=== PATIENT | male | born 1945 | race Two or more races ===

== ENCOUNTER 2019-12-20 21:27 | Inpatient (IN) | payer MEDICARE, MEDICAID ==
[~2019-12-20] VITALS: Ht 175.3 cm; Wt 68.5 kg
[2019-12-20 22:40] VITALS: BP 133/67
[2019-12-21] VITALS: BP 119/61
[2019-12-21] MEDS ORDERED: MAGNESIUM HYDROXIDE 30 ML UDC PO PRN
[2019-12-21] MEDS ORDERED: ONDANSETRON HCL/PF 4 MG/2 ML VIAL IVP PRN
[2019-12-21] MEDS ORDERED: NALOXONE HCL 0.4 MG/ML AMPUL IV PRN
[2019-12-21] MEDS ORDERED: MAG HYDROX/AL HYDROX/SIMETH 30 ML UDC PO PRN
[2019-12-21 03:28] LABS: BASOPHILS % (AUTO) 0.4 % (0.0-2.0); EOSINOPHILS % (AUTO) 0.7 % (0.0-6.0); HEMATOCRIT 31 % (39-51); LYMPHOCYTES # (AUTO) 1.1 /CMM (0.8-4.8); LYMPHOCYTES % (AUTO) 16.5 % (20.0-44.0); MEAN CORPUSCULAR HGB CONC 32 g/dl (31.0-36.0); MEAN CORPUSCULAR VOLUME 88 fL (80-96); MONOCYTES # (AUTO) 0.4 /CMM (0.1-1.30); MONOCYTES % (AUTO) 6.3 % (2.0-12.0); NEUTROPHILS # (AUTO) 5.3 /CMM (1.8-8.9); NEUTROPHILS % (AUTO) 76.1 % (43.0-81.0); PLATELET COUNT (AUTO) 309 /CMM (150-450)
[2019-12-21 03:39] LABS: SERUM AMMONIA 61 umol/L (11-32)
[2019-12-21 03:50] LABS: ALANINE AMINOTRANSFERASE 22 U/L (12-78); ALBUMIN 1.6 g/dL (3.4-5.0); ALKALINE PHOSPHATASE 107 U/L (46-116); ASPARTATE AMINOTRANSFERASE 38 U/L (15-37); B-TYPE NATRIURETIC PEPTIDE 2756 PG/ML (0-125); BILIRUBIN,DIRECT 1.2 mg/dL (0.0-0.2); BILIRUBIN,TOTAL 1.6 mg/dL (0.2-1.0); CALCIUM, SERUM 6.5 mg/dL (8.5-10.1); CARBON DIOXIDE 22 mmol/L (21-32); CHLORIDE 107 mmol/L (98-107); CREATININE 1.5 mg/dL (0.6-1.3); GLUCOSE 65 mg/dL (74-106); PHOSPHORUS 4.4 mg/dL (2.5-4.9); POTASSIUM 3.8 mmol/L (3.5-5.1); SODIUM SERUM 139 mmol/L (136-145); TOTAL PROTEIN, SERUM 5.3 g/dL (6.4-8.2); UREA NITROGEN, BLOOD 46 mg/dL (7-18)
[2019-12-21 03:51] LABS: CHOLESTEROL 63 mg/dL (<200); LDL 12 mg/dL (0-99); THYROID STIMULATING HORMONE 0.804 uIU/mL (0.358-3.74); TRIGLYCERIDES 182 mg/dL (30-150)
[2019-12-21 04:00] VITALS: BP 106/56
[2019-12-21 04:01] LABS: HDL CHOLESTEROL < 10 mg/dL (40-60)
--- NOTE | 2019-12-21 06:37 | NUR ---
HAT BLOCKING MACHINE OPERATOR NOTES AWAKE & RESPONSIVE. NOT IN ANY DISTRESS. NO SOB NOTED. DENIES ANY PAIN OR DISCOMFORT AT THIS TIME. ON TELE SR @ 72 WITH IV-HL PATENT & INTACT. MONITORED ACCORDINGLY. CALL LIGHT WITHIN REACH. BED IN LOWEST POSITION. SR UP X 3 WITH BED ALARM ON FOR SAFETY. WILL ENDORSE TO NEXT SHIFT.
[2019-12-21] MEDS ORDERED: MORP30TA59 PO (06:47)
[2019-12-21] MEDS ORDERED: FINA5TAB4 PO (06:47)
[2019-12-21] MEDS ORDERED: APIX5TAB4 PO (06:47)
[2019-12-21] MEDS ORDERED: DULO30CA2 PO (06:47)
[2019-12-21] MEDS ORDERED: OXYB5TAB29 PO (06:47)
[2019-12-21] MEDS ORDERED: METO100T14 PO (06:47)
[2019-12-21] MEDS ORDERED: LORA-259 PO (06:47)
[2019-12-21] MEDS ORDERED: AMIO200T4 PO (06:47)
[2019-12-21] MEDS ORDERED: ZOLP10TA2 PO (06:47)
[2019-12-21] MEDS ORDERED: TAMS-12 PO (06:47)
[2019-12-21] MEDS ORDERED: DICL100T2 PO (06:47)
--- NOTE | 2019-12-21 07:30 | NUR ---
RN NOTES RECEIVED PATIENT IN BED RESTING COMFORTABLY IN MODERATE HIGH BACK REST. A/O X3. NO SIGNS OF DISTRESS NOTED AT THIS TIME. ON TELE MONITORING WITH CURRENT READING OF SR @ 60'S. IV ACCESS ON RIGHT THUMB #24 AND RIGHT FOOT #24. PATENT & INTACT. SAFETY MEASURES IN PLACE, CALL LIGHT WITHIN REACH. BED IN LOWEST POSITION. SR UP X 3 WITH BED ALARM ON FOR SAFETY. WILL CONTINUE TO MONITOR.
[2019-12-21 08:00] VITALS: BP 114/56
[2019-12-21] MEDS ORDERED: HYDR100T27 PO (08:08)
[2019-12-21] MEDS ORDERED: DICL50TA9 PO (08:08)
[2019-12-21] MEDS ORDERED: APIX5TAB PO (08:08)
[2019-12-21] MEDS ORDERED: METO25TA4 PO (08:08)
[2019-12-21] MEDS ORDERED: hydrALAZINE HCL 50 MG TABLET PO PRN (08:30)
[2019-12-21 08:44] LABS: IRON, SERUM 22 ug/dl (50-175); TOTAL IRON BINDING CAPACITY 81 ug/dl (250-450)
[2019-12-21] MEDS: DULOXETINE HCL 30 MG CAPSULE.DR PO SCH (08:56)
[2019-12-21] MEDS: FINASTERIDE (5 MG) 5 MG TABLET PO SCH (08:56)
[2019-12-21] MEDS: FUROSEMIDE 40 MG/4 ML VIAL IV SCH ×2 (08:57→11:36)
[2019-12-21] MEDS: OXYBUTYNIN CHLORIDE ER 5 MG TAB PO SCH ×2 (08:57→16:45)
[2019-12-21] MEDS: PANTOPRAZOLE 40 MG TABLET.DR PO SCH (08:57)
[2019-12-21] MEDS: AMIODARONE HCL 200 MG TABLET PO SCH ×2 (08:57→16:45)
[2019-12-21] MEDS: POTASSIUM CHLORIDE 20 MEQ TAB.PRT.SR PO SCH ×3 (08:58→11:30)
[2019-12-21] MEDS: APIXABAN 5 MG TABLET PO SCH ×2 (08:59→16:49)
[2019-12-21 09:00] LABS: CHOLESTEROL 63 mg/dL (<200); FERRITIN 270 ng/mL (8-388); LDL 14 mg/dL (0-99); TRIGLYCERIDES 180 mg/dL (30-150)
[2019-12-21] MEDS: METOPROLOL SUCCINATE 25 MG TAB.SR.24H PO SCH (09:00)
[2019-12-21 09:10] LABS: HDL CHOLESTEROL < 10 mg/dL (40-60)
--- NOTE | 2019-12-21 09:10 | NUR ---
RN NOTES PT: 15.4, INR: 1.50, APTT: 44.6, VERIFY WITH DR. TUCKER IF OKAY TO GIVE APIXABAN 5MG, PER DR. TUCKER IT IS OKAY. NO BLEEDING NOTED. WILL CONTINUE TO MONITOR.
[2019-12-21 09:24] LABS: PHOSPHORUS 4.6 mg/dL (2.5-4.9)
[2019-12-21] MEDS ORDERED: FEE PK DOSING 1 MIN EA MC ONE (11:26)
[2019-12-21] MEDS: VANCOMYCIN 1 GM in IV D5W 250 ML IV SCH (13:13)
--- NOTE | 2019-12-21 18:38 | NUR ---
RN NOTES PATIENT IN BED RESTING COMFORTABLY IN MODERATE HIGH BACK REST. A/O X3. NO SIGNS OF DISTRESS NOTED THROUGHOUT THE SHIFT. IV ACCESS ON RIGHT THUMB #24 AND RIGHT FOOT #24. PATENT & INTACT. SAFETY MEASURES IN PLACE, CALL LIGHT WITHIN REACH. BED IN LOWEST POSITION. SR UP X 3 WITH BED ALARM ON FOR SAFETY. WILL ENDORSE TO MAGAZINE FEEDER NURSE FOR ADEN.
[2019-12-21 20:00] VITALS: BP 150/70
--- NOTE | 2019-12-21 20:50 | NUR ---
Met with patient at bedside, he is alert and oriented. States he lives alone in the first floor senior apartment. States he can ambulate with a walker and has a caregiver from [facility] 4hours/day. He requires assistance with adl's and currently on service with [facility] [phone]. Patient does not want SNF placement, states his caregiver Ngoc [phone] will provide ride to go home. Addendum: 12/21/[address] TRIANA RN Amended: Links added.
[2019-12-21] MEDS: TAMSULOSIN 0.4 MG CAP.SR.24H PO SCH (21:17)
--- NOTE | 2019-12-22 06:00 | NUR ---
MS RN NOTES VANCO UNABLE TO GIVE DUE TO PENDING VANCO TROUGH. PT NGHIA. LAB WILL COME BACK TO DRAW BLOOD.
--- NOTE | 2019-12-22 06:08 | NUR ---
MS RN NOTES AWAKE & RESPONSIVE. NOT IN ANY DISTRESS. NO SOB NOTED. DENIES ANY PAIN OR DISCOMFORT AT THIS TIME. WITH IV-HL PATENT & INTACT. AM CARE DONE. MONITORED ACCORDINGLY. CALL LIGHT WITHIN REACH. BED IN LOWEST POSITION. SR UP X 3 WITH BED ALARM ON FOR SAFETY. WILL ENDORSE TO NEXT SHIFT.
--- NOTE | 2019-12-22 07:30 | NUR ---
RN NOTES RECEIVED PATIENT IN BED RESTING COMFORTABLY IN MODERATE HIGH BACK REST. A/O X3. NO SIGNS OF DISTRESS NOTED AT THIS TIME. IV ACCESS ON RIGHT THUMB #24 AND RIGHT FOOT #24. PATENT & INTACT. SAFETY MEASURES IN PLACE, CALL LIGHT WITHIN REACH. BED IN LOWEST POSITION. SR UP X 3 WITH BED ALARM ON FOR SAFETY. WILL CONTINUE TO MONITOR.
[2019-12-22] MEDS ORDERED: AMIODARONE HCL 200 MG TABLET PO SCH (08:00)
[2019-12-22 08:25] LABS: ALANINE AMINOTRANSFERASE 25 U/L (12-78); ALBUMIN 1.5 g/dL (3.4-5.0); ALKALINE PHOSPHATASE 113 U/L (46-116); ASPARTATE AMINOTRANSFERASE 35 U/L (15-37); BILIRUBIN,TOTAL 1.1 mg/dL (0.2-1.0); CARBON DIOXIDE 23 mmol/L (21-32); CHLORIDE 105 mmol/L (98-107); CREATININE 1.1 mg/dL (0.6-1.3); GLUCOSE 84 mg/dL (74-106); MAGNESIUM 1.9 mg/dL (1.8-2.4); PHOSPHORUS 2.4 mg/dL (2.5-4.9); SODIUM SERUM 137 mmol/L (136-145); TOTAL PROTEIN, SERUM 5.4 g/dL (6.4-8.2); UREA NITROGEN, BLOOD 40 mg/dL (7-18)
[2019-12-22] MEDS: OXYBUTYNIN CHLORIDE ER 5 MG TAB PO SCH ×2 (08:58→16:09)
[2019-12-22] MEDS: PANTOPRAZOLE 40 MG TABLET.DR PO SCH (08:59)
[2019-12-22] MEDS: DULOXETINE HCL 30 MG CAPSULE.DR PO SCH (08:59)
[2019-12-22] MEDS: METOPROLOL SUCCINATE 25 MG TAB.SR.24H PO SCH (08:59)
[2019-12-22] MEDS: FINASTERIDE (5 MG) 5 MG TABLET PO SCH (08:59)
[2019-12-22] MEDS: APIXABAN 5 MG TABLET PO SCH ×2 (09:00→16:09)
[2019-12-22] MEDS: FUROSEMIDE 100 MG/10 ML VIAL IV SCH ×3 (09:12→16:00)
[2019-12-22] MEDS: VANCOMYCIN 1 GM in IV D5W 250 ML IV SCH ×2 (09:47→21:22)
--- NOTE | 2019-12-22 10:00 | NUR ---
RN NOTES CALLED [employer] FOR [employer]ATION C[employer], LEFT A MESSAGE AND ALSO SAW [employer] ON UNIT. MADE AWARE OF REQUEST. THEY SAID THEY WILL SEND IT UP.
--- NOTE | 2019-12-22 11:23 | NUR ---
Social service consult requested by wound BRITTANI Garza due to pt. having wounds and residing alone at home. Per chart review and MD notes, pt is a 74-year-old male with documented past medical history of atrial fibrillation, CVA, hypertension, chronic back pain, osteoarthritis, BPH, depression, and prescription opioids dependency. Pt is alert and oriented x 4. Pt. resides alone and receives upto 4 hrs of IHSS per day. Pt's caregiver is Ngoc Self . Pt declined SNF placement and wants to be discharged back home. Pt is currently receiving home health services through [facility] . ASSEMBLER CONVERTIBLE TOP consulted with Ben case manager specialist who will contact the home health and request a social worker psychiatric consult to visit the pt. at home to assess the pt and his needs at home. ASSEMBLER CONVERTIBLE TOP also discussed case with wound BRITTANI Garza.
--- NOTE | 2019-12-22 12:30 | NUR ---
RN NOTES PATIENT REFUSED MEDICATION(LASIX), HE SAID IT MAKES HIM URINATE EVERY 10-15 MIN. EXPLAINED TO THE PATIENT THAT IT IS NORMAL EFFECT OF THE MEDICATION. EXPLAINED RISKS AND BENEFITS. VERBALIZED UNDERSTANDING BUT STILL REFUSED. WILL CONTINUE TO MONITOR.
[2019-12-22] MEDS ORDERED: LOPERAMIDE HCL (2 MG CAP) 2 MG CAPSULE PO ONE (14:30)
[2019-12-22] MEDS ORDERED: LOPERAMIDE HCL (2 MG CAP) 2 MG CAPSULE PO PRN (14:36)
--- NOTE | 2019-12-22 15:00 | NUR ---
RN NOTES PATIENT REFUSED BLOOD DRAW FOR 2X. EXPLAINED THE RISKS AND BENEFITS AND STILL REFUSED. INFORM THE LAB TO TRY AGAIN LATER. WILL CONTINUE TO MONITOR.
--- NOTE | 2019-12-22 15:30 | NUR ---
RN NOTES PATIENT IS DEMANDING TO SEE THE DOCTOR AND ASKING FOR ANXIETY MEDICATION, INFORMED THE PATIENT THAT I WILL INFORMED THE MD. PATIENT SHOUTED AND CALLED [employer]. SPOKE TO DR. LUU AND MADE AWARE OF THE SITUATION. MD ORDERED PSYCH EVAL FOR PATIENT. ORDERS MADE AND CARRIED OUT. WILL CONTINUE TO MONITOR.
[2019-12-22 16:00] VITALS: BP 153/84
[2019-12-22] MEDS ORDERED: NEUTRA PHOS 1 POWD.PACKET PO ONE (17:00)
--- NOTE | 2019-12-22 18:32 | NUR ---
RN NOTES PATIENT IN BED RESTING COMFORTABLY IN MODERATE HIGH BACK REST. A/O X3. IV ACCESS ON RIGHT THUMB #24 AND RIGHT FOOT #24. PATENT & INTACT. REFUSED AFTERNOON MEDICATION AND LABS, EXPLAINED RISKS AND BENEFITS, VERBALIZED UNDERSTANDING BUT STILL REFUSED. MD AWARE. SAFETY MEASURES IN PLACE, CALL LIGHT WITHIN REACH. BED IN LOWEST POSITION. SR UP X 3 WITH BED ALARM ON FOR SAFETY. WILL ENDORSE TO PAPER MACHINE BACK TENDER NURSE FOR ADEN.
--- NOTE | 2019-12-22 19:10 | NUR ---
MS RN NOTE RECEIVED PT IN STABLE CONDITION A/O X3-4, NO SIGNS OF SOB OR DISTRESS. NO C/O PAIN OR N/V. IV IN R FOOT #[address]. ALL CURRENT NEEDS ATTENDED TO. BED LOW, LOCKED, UPPER RAILS UP, AND CALL LIGHT WITHIN REACH. WILL CONT.TO MONITOR.
[2019-12-22 20:00] VITALS: BP 152/84
[2019-12-22] MEDS: TAMSULOSIN 0.4 MG CAP.SR.24H PO SCH (21:19)
--- NOTE | 2019-12-22 22:41 | NUR ---
MS RN NOTE NOTIFIED JOSE L OF PT BACK PAIN 06/17, AND AGITATION. NEW ORDER FOR NORCO 5/325 MG PO 1X. WILL CARRY ORDER OUT.
[2019-12-22] MEDS ORDERED: HYDROCODONE/APAP 5/325MG 1 EACH TABLET PO ONE (23:00)
--- NOTE | 2019-12-23 04:00 | NUR ---
MS RN NOTES PATIENT NON-COMPLIANT. IN AND OUT OF ROOM DESPITE NURSING AND CHARGE NURSE TALKS TO HIM REGARDING CALLING FOR ASSISTANCE AND STAYING IN BED. BED ALARM GOING ON ALL DAY DUE TO PATIENT BEING NON-COMPLIANT. HE JUST WANTS TO GO HOME AND REFUSES ANY TREATMENT SUCH MEDICATIONS AND PROCEDURES. MD AWARE. PER MD PATIENT CAN NOT BE DISCHARGED HOME OR PATIENT CAN NOT LEAVE AMA. AFTER GETTING UP ONE MORE TIME WITHOUT CALLING FOR ANY HELP PATIENT SLED OFF THE BED TO THE FLOOR. NO INJURIES PRESENT. PATIENT REFUSED VITAL SIGNS BUT WHEN PERSUADED, VITAL SIGNS TAKEN RIGHT AWAY AND ALL ARE STABLE. MD NOTIFIED. CONTINUING TO MONITOR PATIENT.
--- NOTE | 2019-12-23 06:19 | NUR ---
MS RN NOTE PT REFUSED AM LABS TO BE DRAWN. RISKS AND BENEFITS MADE AWARE WITH VERBALIZATION OF UNDERSTANDING.
--- NOTE | 2019-12-23 06:32 | NUR ---
MS RN NOTE PT REMAINS IN STABLE CONDITION A/O X3-4, NO SIGNS OF SOB OR DISTRESS. NO C/O PAIN OR N/V. IV IN R FOOT #22 AND R THUMB #[address]. ALL CURRENT NEEDS ATTENDED TO. BED LOW, LOCKED, UPPER RAILS UP, ISOLATION PRECAUTIONS IN PLACE, AND CALL LIGHT WITHIN REACH. WILL CONT.TO MONITOR AND ENDORSE TO NEXT SHIFT FOR ADEN.
--- NOTE | 2019-12-23 07:29 | NUR ---
MS RN OPENING NOTES RECEIVED PATIENT IN BED, AWAKE, WALKING AROUND THE ROOM WITH ASSIST. PATIENT ON ROOM AIR BREATHING EVENLY. COMPLAINING OF BACK PAIN. R THUMB GAUGE # 22 AND R FOOT GAUGE # 33 PRESENT AND FLUSHING WELL. SAFETY PRECAUTIONS IN PLACE: BED IN LOW POSITION AND LOCKED, RAILS UP X 2, CALL LIGHT WITHIN REACH. WILL CONTINUE TO MONITOR PATIENT.
[2019-12-23] MEDS: PANTOPRAZOLE 40 MG TABLET.DR PO SCH (07:30)
[2019-12-23] MEDS: MORPHINE SULFATE INJ 2 MG/ML DISP.SYRIN IV PRN (07:46)
[2019-12-23 08:00] VITALS: BP 175/87
--- NOTE | 2019-12-23 08:33 | NUR ---
MS RN NOTES PATIENT NONCOMPLIANT. PATIENT KEEPS GETTING OUT OF BED DESPITE FREQUENT REMINDERS THAT HE CAN NOT DO SO. BED ALARM IS CONSTANTLY GOING OFF. PATIENT COMPLAINING HE CAN NOT SIT IN ONE PLACE. CHARGE NURSE NOTIFIED.
[2019-12-23] MEDS: FUROSEMIDE 80 MG TABLET PO SCH (09:00)
[2019-12-23] MEDS: OXYBUTYNIN CHLORIDE ER 5 MG TAB PO SCH ×2 (09:00→17:00)
[2019-12-23] MEDS: DULOXETINE HCL 30 MG CAPSULE.DR PO SCH (09:00)
[2019-12-23] MEDS: FINASTERIDE (5 MG) 5 MG TABLET PO SCH (09:00)
[2019-12-23] MEDS: APIXABAN 5 MG TABLET PO SCH ×2 (09:00→17:00)
[2019-12-23] MEDS: METOPROLOL SUCCINATE 25 MG TAB.SR.24H PO SCH (09:00)
[2019-12-23] MEDS: AMIODARONE HCL 200 MG TABLET PO SCH (09:00)
--- NOTE | 2019-12-23 09:14 | NUR ---
MS RN NOTES PATIENT NON-COMPLIANT. REFUSES ALL MEDS AND ANY LAB PROCEDURE.
[2019-12-23] MEDS: VANCOMYCIN 1 GM in IV D5W 250 ML IV SCH ×2 (10:57→22:00)
[2019-12-23 16:00] VITALS: BP 146/94
--- NOTE | 2019-12-23 18:43 | NUR ---
MS RN CLOSING NOTES PATIENT IN BED AT THIS TIME, AWAKE, AO X3. PATIENT ON ROOM AIR BREATHING EVENLY WITH SO SIGNS OF DISTRESS. DENIES PAIN. PATIENT NON-COMPLIANT ALL DAY. REFUSED MEDS, LABS AND PROCEDURES. MD AWARE. PATIENT WANTED TO LEAVE AMA. CRISIS TEAM SAW THE PATIENT. WAITING ON DECISION. WILL ENDORSE TO ANDROID PROGRAMMER NURSE.
--- NOTE | 2019-12-23 19:55 | NUR ---
RN NOTES RECEIVED PATIENT, AWAKE ALERT ORIENTED X3, INSISTING THAT HE WANTS TO GO HOME, TELLING STAFF TO CALL THE AMBULANCE, SITTER IS AT BEDSIDE, SAFETY MEASURES IN PLACE, ASPIRATION PRECAUTION EMPHASIZED, CALL LIGHT WITHIN EASY REACH, ALL NEEDS ANTICIPATED, NO SIGNS OF ACUTE DISTRESS NOTED , HAS DIAPER ON, USES URINAL AND BEDSIDE COMMODE, KEEP CLEAN WARM DRY AND COMFORTABLE, ALL NEEDS ANTICIPATED, WILL CONTINUE TO MONITOR ACCORDINGLY.
[2019-12-23 20:50] VITALS: BP 153/91
[2019-12-23] MEDS: TAMSULOSIN 0.4 MG CAP.SR.24H PO SCH ×2 (22:28→22:40)
--- NOTE | 2019-12-24 00:37 | NUR ---
RN NOTES VANCOMYCIN 1 GM IV NON-ADMINISTERED, PATIENT HAS NO IV ACCESS, REFUSING TO RE INSERT, REFUSING ALL MEDICAL INTERVENTION, REFUSED BLOOD DRAW FOR VANCOMYCIN TROUGH, PATIENT IS NON COMPLIANT. SITTER IS AT BEDSIDE, WILL CONTINUE TO MONITOR ACCORDINGLY.
[2019-12-24 06:28] VITALS: BP 142/88
--- NOTE | 2019-12-24 07:30 | NUR ---
RN NOTES ALL NEEDS ATTENDED, SITTER AT BEDSIDE, ABLE TO REST AND SLEPT WITH SHORT INTERVALS, CALM, NON COMBATIVE, RESTING COMFORTABLY, ENDORSED TO AM NURSE WITH 72 HOUR HOLD MAY TRANSFER PATIENT TO [facility] ONCE MEDICALLY CLEARED.
--- NOTE | 2019-12-24 07:30 | NUR ---
RN MS NOTES PT AWAKE, SITTING IN HIS CHAIR, ALERT AND ORIENTED, VERBALLY RESPONSIVE, NO COMPLAINT OF PAIN, RESPIRATIONS NORMAL, SITTER AT BEDSIDE, SAFETY PRECAUTIONS OBSERVED.
[2019-12-24 08:00] VITALS: BP 158/90
[2019-12-24] MEDS: PANTOPRAZOLE 40 MG TABLET.DR PO SCH (08:49)
[2019-12-24] MEDS: DULOXETINE HCL 30 MG CAPSULE.DR PO SCH (08:49)
[2019-12-24] MEDS: FUROSEMIDE 80 MG TABLET PO SCH (08:50)
[2019-12-24] MEDS: OXYBUTYNIN CHLORIDE ER 5 MG TAB PO SCH ×2 (08:50→17:16)
[2019-12-24] MEDS: FINASTERIDE (5 MG) 5 MG TABLET PO SCH (08:50)
[2019-12-24] MEDS: METOPROLOL SUCCINATE 25 MG TAB.SR.24H PO SCH (08:51)
[2019-12-24] MEDS: AMIODARONE HCL 200 MG TABLET PO SCH (08:51)
[2019-12-24] MEDS: APIXABAN 5 MG TABLET PO SCH ×2 (08:52→17:17)
[2019-12-24] MEDS: VANCOMYCIN 1 GM in IV D5W 250 ML IV SCH ×2 (11:10→22:11)
[2019-12-24] MEDS: MORPHINE SULFATE INJ 2 MG/ML DISP.SYRIN IV PRN (12:56)
--- NOTE | 2019-12-24 13:00 | NUR ---
RN MS NOTES PT IN BED, AWAKE, ALERT AND ORIENTED, NO BEHAVIOR PROBLEM NOTED AT THIS TIME, COMPLIANT WITH MEDS AND INTERVENTIONS, ABLE TO TAKE ALL HIS MEDS THIS MORNING, AGREED FOR IV INSERTION, TOLERATED WELL, SITTER AT BEDSIDE, SEEN BY DR. CARTER, ORDERS MADE AND CARRIED OUT.
[2019-12-24] MEDS: DIVALPROEX SODIUM 125 MG CAP.SPRINK PO SCH ×2 (14:37→17:16)
[2019-12-24 16:00] VITALS: BP 146/86
--- NOTE | 2019-12-24 18:50 | NUR ---
RN MS NOTES PT IN BED, RESTING, DENIES PAIN, NOT IN DISTRESS, CALL LIGHT WITHIN REACH, NO BEHAVIOR PROBLEM NOTED AT THIS TIME, COMPLIANT WITH MEDS AND INTERVENTION, NO EPISODE OF DIARRHEA, STOOLS ARE FORMED, NO FOUL ODOR NOTED, SITTER AT BEDSIDE, SAFETY PRECAUTIONS OBSERVED.
[2019-12-24 19:22] LABS: BASOPHILS % (AUTO) 0.2 % (0.0-2.0); EOSINOPHILS % (AUTO) 0.9 % (0.0-6.0); HEMATOCRIT 29 % (39-51); HEMOGLOBIN 9.7 g/dL (13.5-17.5); LYMPHOCYTES # (AUTO) 1.7 /CMM (0.8-4.8); LYMPHOCYTES % (AUTO) 18.7 % (20.0-44.0); MEAN CORPUSCULAR HGB CONC 34 g/dl (31.0-36.0); MEAN CORPUSCULAR VOLUME 86 fL (80-96); MONOCYTES # (AUTO) 0.4 /CMM (0.1-1.30); MONOCYTES % (AUTO) 4.1 % (2.0-12.0); NEUTROPHILS % (AUTO) 76.1 % (43.0-81.0); PLATELET COUNT (AUTO) 284 /CMM (150-450); RED BLOOD CELL COUNT(AUTO) 3.34 MIL/uL (4.5-6.0); WHITE BLOOD COUNT (AUTO) 9.2 K/uL (4.3-11.0)
--- NOTE | 2019-12-24 19:30 | NUR ---
RN MS NOTES PT RESTING IN BED, AWAKE, ALERT AND ORIENTED, NO COMPLAINT OF PAIN, BREATHING PATTERN NORMAL, CALL LIGHT WITHIN REACH, SITTER AT BED SIDE, KEPT WARM AND COMFORTABLE, WILL CONTINUITY WITH CARE.
[2019-12-24 20:10] VITALS: BP 137/80
[2019-12-24 20:11] LABS: ALBUMIN 1.9 g/dL (3.4-5.0); BILIRUBIN,TOTAL 0.9 mg/dL (0.2-1.0); CALCIUM, SERUM 7.3 mg/dL (8.5-10.1); CREATININE 0.8 mg/dL (0.6-1.3); TOTAL PROTEIN, SERUM 6.1 g/dL (6.4-8.2)
[2019-12-24 20:19] LABS: POTASSIUM 2.4 mmol/L (3.5-5.1)
--- NOTE | 2019-12-24 20:30 | NUR ---
RN NOTES ; RECEEIVED PHON CALL FROM LAB REGRADING ABOUT PT. POTASSIUM LEVEL IS 2.4 , NOTIFIED PHARMACY INTAKE TECHNICIAN DR. DELGADO WITH T.O NEW ORDERS 40 MEQ IV NEW ORDERS RECEIVED AND CARRIED OUT. Addendum: 12/25/19 at 0334 by STEVEN QUIÑONEZ RN CHARGE NURSE VILLAVICENCIO AND IN FORMED
[2019-12-24] MEDS ORDERED: POTASSIUM CHLORIDE 10 MEQ/50 ML PREMIXED IVPB FOR PERIPHERAL LINE IV ONE ×2 (21:00)
[2019-12-24] MEDS ORDERED: POTASSIUM CL. PREMIX PERIPHER. 100 ML ONE (21:07)
[2019-12-24 21:31] LABS: MAGNESIUM 1.5 mg/dL (1.8-2.4); PHOSPHORUS 2.5 mg/dL (2.5-4.9)
[2019-12-24] MEDS: TAMSULOSIN 0.4 MG CAP.SR.24H PO SCH (21:39)
[2019-12-25] MEDS: MORPHINE SULFATE INJ 2 MG/ML DISP.SYRIN IV PRN ×3 (00:22→15:56)
[2019-12-25 05:16] VITALS: BP 128/69
--- NOTE | 2019-12-25 06:40 | NUR ---
RN MS NOTES PT.RESTING IN BED, AWAKE, ALERT AND ORIENTED, NO COMPLAINT OF PAIN, BREATHING PATTERN NORMAL, CALL LIGHT WITHIN REACH,CARE, SITTER AT BED SIDE, ALL NEEDS ATTENDED.WILL ENDORSE TO AM RN FOR CONTINUITY WITH CARE.
--- NOTE | 2019-12-25 07:16 | NUR ---
RN OPENING NOTE PT WAS RECEIVED IN BED AT LOWEST AND LOCKED POSITION WITH SIDE RAILS UP X2, A/O 2-3 BREATHING EVEN AND UNLABORED ON RA WITH NO S/S OF ANY DISTRESS OR PAIN AT THIS TIME, IV IS PATENT AND INTACT, AMBULATORY WITH ASSIST, NOTED TO HAVE SACRAL BUTTOCK WOUND, POTASSIUM 40 MEQ IV GIVEN AND REPLACED LAST NIGHT PER NIGHT RN TAMARA, SITTER AT BEDSIDE, SAFETY PRECAUTIONS IN PLACE, CALL LIGHT IN REACH, WILL MONITOR ACCORDINGLY
[2019-12-25] MEDS ORDERED: POTASSIUM CHLORIDE 20 MEQ TAB.PRT.SR PO ONE ×2 (08:00→12:00)
[2019-12-25] MEDS: Magnesium 1GM/D5W 100ML PREMIX 100 ML IV SCH ×2 (08:25→09:37)
[2019-12-25] MEDS: DIVALPROEX SODIUM 125 MG CAP.SPRINK PO SCH ×5 (08:29→21:47)
[2019-12-25] MEDS: OXYBUTYNIN CHLORIDE ER 5 MG TAB PO SCH ×2 (08:30→16:27)
[2019-12-25] MEDS: DULOXETINE HCL 30 MG CAPSULE.DR PO SCH (08:30)
[2019-12-25] MEDS: FUROSEMIDE 80 MG TABLET PO SCH (08:31)
[2019-12-25] MEDS: PANTOPRAZOLE 40 MG TABLET.DR PO SCH (08:31)
[2019-12-25] MEDS: FINASTERIDE (5 MG) 5 MG TABLET PO SCH (08:31)
[2019-12-25] MEDS: METOPROLOL SUCCINATE 25 MG TAB.SR.24H PO SCH (08:32)
[2019-12-25] MEDS: APIXABAN 5 MG TABLET PO SCH ×2 (08:33→16:27)
[2019-12-25] MEDS: AMIODARONE HCL 200 MG TABLET PO SCH (08:35)
--- NOTE | 2019-12-25 09:40 | NUR ---
RN NOTE ORDERED PO 80 MEQ OF POTASSIUM NOT GIVEN DUE TO THE PT RECEIVING IV POTASSIUM LAST NIGHT Addendum: 12/25/19 at 1127 by NEVILLE MEDLEY RN AM LAB RESULTS PENDING
[2019-12-25] MEDS: VANCOMYCIN 1 GM in IV D5W 250 ML IV SCH ×2 (11:19→21:47)
[2019-12-25 11:21] LABS: CREATININE 0.8 mg/dL (0.6-1.3)
[2019-12-25 11:24] LABS: POTASSIUM 2.6 mmol/L (3.5-5.1)
--- NOTE | 2019-12-25 11:37 | NUR ---
RN NOTE MADE AWARE OF POTASSIUM VALUE OF 2.6 ORDER RECEIVED TO GIVE 80 MEQ POTASSIUM PO AND REPEAT POTASSIUM LATER IN THE AFTERNOON
--- NOTE | 2019-12-25 11:45 | NUR ---
RN NOTE PT PULLED OUT IV AT THIS TIME, HALF OF THE VANCO INFUSED, WILL ATTEMPT NEW IV
--- NOTE | 2019-12-25 12:04 | NUR ---
RN NOTE PHOTO TAKEN OF PT FOREHEAD AT THIS TIME DUE TO PATIENT HITTING HIS HEAD ON THE WALL. PER THE SITTER PT STOOD UP AND WAS DOING SOME EXERCISES BY PUSHING HIMSELF OFF THE WALL WHEN HE ALL OF A SUDDEN HIT HEAD ON THE WALL ONCE WHICH CAUSED AN ABRASION. PHOTO TAKEN AND PLACED IN CHART, WILL INFORM MD SOON ABLE. Addendum: 12/25/19 at 1718 by NEVILLE MEDLEY RN DR. CARTER MADE AWARE OF WHAT OCCURRED, ORDER GIVEN TO INCREASE DEPAKOTE TO 250 PO TID AND GIVE ONE DOSE NOW, WILL IMPLEMENT AND CARRY OUT
--- NOTE | 2019-12-25 13:00 | NUR ---
RN NOTE NEW IV INSERTED IN RIGHT AC GAUGE 20, ATTEMPTED TO FINISH VANCO BUT PT REFUSED
[2019-12-25] MEDS ORDERED: DIVALPROEX SODIUM 125 MG CAP.SPRINK PO SCH (13:30)
--- NOTE | 2019-12-25 18:22 | NUR ---
RN CLOSING NOTE PT IN BED AT LOWEST AND LOCKED POSITION WITH SIDE RAILS UP X2, A/O X3 BREATHING EVEN AND UNLABORED ON RA WITH NO DISTRESS OR PAIN, IV IS PATENT AND INTACT, POTASSIUM REPLACED, SITTER AT BEDSIDE, SAFETY PRECAUTIONS IN PLACE, CALL LIGHT IN REACH, ALL NEEDS ATTENDED TO, WILL ENDORSE TO NIGHT RN FOR ADEN.
--- NOTE | 2019-12-25 19:30 | NUR ---
MS RN NOTE: PATIENT RESTING IN BED, NO ACUTE DISTRESS NOTED. BREATHING EVEN AND UNLABORED, NO SOB NOTED. IV TO RAC IN PLACE. SITTER AT BEDSIDE. BED LOCKED AND IN LOWEST POSITION, CALL LIGHT IN REACH. WILL CONTINUE TO MONITOR.
[2019-12-25 20:00] VITALS: BP 123/78
[2019-12-25] MEDS: TAMSULOSIN 0.4 MG CAP.SR.24H PO SCH (21:47)
[2019-12-26] VITALS (24 sets, daily range): BP systolic 90–158; BP diastolic 46–80
--- NOTE | 2019-12-26 04:45 | NUR ---
MS RN NOTE: PATIENT HAD DARK BLOODY STOOL, VITAL SIGNS STABLE. CARDIOLOGIST MD INFORMED WITH NEW ORDERS FOR CBC, PT/INR, PTT IN AM AND TO COLLECT STOOL FOR OB. GI CONSULT PENDING AM LAB RESULTS. ALSO TO HOLD AM DOSE OF ELIQUIS. ORDERS NOTED AND CARRIED OUT. WILL CONTINUE TO MONITOR.
--- NOTE | 2019-12-26 06:05 | NUR ---
MS RN NOTE: PATIENT RESTING IN BED, NO ACUTE DISTRESS NOTED. BREATHING EVEN AND UNLABORED, NO SOB NOTED. IV TO RAC IN PLACE. SITTER AT BEDSIDE. NO ADDITIONAL BM AT THIS TIME, WILL ENDORSE TO DAY NURSE TO COLLECT STOOL FOR OB. BED LOCKED AND IN LOWEST POSITION, CALL LIGHT IN REACH. WILL ENDORSE TO DAY NURSE TO CONTINUE WITH PLAN OF CARE.
--- NOTE | 2019-12-26 07:15 | NUR ---
RN OPENING NOTE PT RECEIVED IN BED AT LOWEST AND LOCKED POSITION WITH SIDE RAILS UP X2, A/O 2-3 BREATHING EVEN AND UNLABORED ON RA WITH NO S/S OF ANY DISTRESS OR PAIN AT THIS TIME, IV IS PATENT AND INTACT, AMBULATORY WITH ASSIST, NOTED TO HAVE SACRAL BUTTOCK WOUND, SITTER AT BEDSIDE, SAFETY PRECAUTIONS IN PLACE, CALL LIGHT IN REACH, WILL MONITOR ACCORDINGLY
[2019-12-26] MEDS: FINASTERIDE (5 MG) 5 MG TABLET PO SCH (08:37)
[2019-12-26] MEDS: FUROSEMIDE 80 MG TABLET PO SCH (08:37)
[2019-12-26] MEDS: DIVALPROEX SODIUM 125 MG CAP.SPRINK PO SCH ×4 (08:38→21:56)
[2019-12-26] MEDS: OXYBUTYNIN CHLORIDE ER 5 MG TAB PO SCH ×2 (08:38→18:51)
[2019-12-26] MEDS: DULOXETINE HCL 30 MG CAPSULE.DR PO SCH (08:38)
[2019-12-26] MEDS: PANTOPRAZOLE 40 MG TABLET.DR PO SCH (08:39)
[2019-12-26] MEDS: AMIODARONE HCL 200 MG TABLET PO SCH (08:41)
[2019-12-26] MEDS: METOPROLOL SUCCINATE 25 MG TAB.SR.24H PO SCH (08:42)
[2019-12-26] MEDS: APIXABAN 5 MG TABLET PO SCH (08:42)
[2019-12-26 08:43] LABS: BASOPHILS # (AUTO) 0.1 /CMM (0.0-0.2); BASOPHILS % (AUTO) 0.4 % (0.0-2.0); EOSINOPHILS % (AUTO) 0.5 % (0.0-6.0); HEMATOCRIT 21 % (39-51); LYMPHOCYTES # (AUTO) 2.5 /CMM (0.8-4.8); LYMPHOCYTES % (AUTO) 14.8 % (20.0-44.0); MEAN CORPUSCULAR HGB CONC 33 g/dl (31.0-36.0); MEAN CORPUSCULAR VOLUME 86 fL (80-96); MONOCYTES # (AUTO) 0.4 /CMM (0.1-1.30); MONOCYTES % (AUTO) 2.2 % (2.0-12.0); NEUTROPHILS # (AUTO) 13.8 /CMM (1.8-8.9); NEUTROPHILS % (AUTO) 82.1 % (43.0-81.0); PLATELET COUNT (AUTO) 260 /CMM (150-450); RED BLOOD CELL COUNT(AUTO) 2.42 MIL/uL (4.5-6.0); WHITE BLOOD COUNT (AUTO) 16.8 K/uL (4.3-11.0)
[2019-12-26 08:47] LABS: OCCULT BLOOD STOOL POSITIVE (NEGATIVE)
[2019-12-26 08:55] LABS: CALCIUM, SERUM 7.5 mg/dL (8.5-10.1); HEMOGLOBIN 6.9 g/dL (13.5-17.5); POTASSIUM 3.5 mmol/L (3.5-5.1)
--- NOTE | 2019-12-26 08:56 | NUR ---
RN NOTE CALL RECEIVED FROM LAB FOR CRITICAL LAB VALUE OF HGB OF 6.9, DR DIAL MADE AWARE, WILL AWAIT FOR ORDERS.
[2019-12-26] MEDS ORDERED: PANTOPRAZOLE 40 MG VIAL IV SCH (09:00)
[2019-12-26] MEDS: VANCOMYCIN 1 GM in IV D5W 250 ML IV SCH ×2 (09:31→22:57)
[2019-12-26 09:41] LABS: LYMPHOCYTES % (MANUAL) 14 % (16-48); METAMYELOCYTES % 1 % (0-0); MONOCYTES % (MANUAL) 1 % (0-11.0); MYELOCYTES % 2 % (0-0); NEUTROPHILS % (MANUAL) 82 (42-76)
--- NOTE | 2019-12-26 10:10 | NUR ---
RN NOTE INFORMED BY CAMPAIGN ADVISOR THAT THEY WERE UNSUCCESSFUL IN BLOOD DRAW, THEY WILL SEND SOMEONE ELSE TO ATTEMPT AGAIN LATER
--- NOTE | 2019-12-26 10:30 | NUR ---
RN NOTE PER PLACE PT ON CLEAR LIQUIDS, WILL IMPLEMENT AND CARRYOUT
--- NOTE | 2019-12-26 11:35 | NUR ---
RN NOTE SEEN PT AT THIS TIME, ORDERS RECEIVED: PT TO BE NPO AT AFTER MIDNIGHT START 1 GALLON GOLYTELY AT 8 PM AND TO FINISH IT ALL BY 6 AM 80 MG PROTONIX BID CHECK HGB Q4H, IF STILL <7 TRANSFUSE ANOTHER UNIT OF BLOOD TRANSFUSE 2 UNITS OF pRBC NOW IF BLEEDING TO FAST OR VS UNSTABLE TRANSFER TO ICU
--- NOTE | 2019-12-26 13:00 | NUR ---
TRANSFER NOTE PT WAS TRANSFERRED TO ICU ROOM [address] HARRIS ENG WHO ALSO PLACED AN PANKAJ MIDLINE AT THIS TIME. BEDSIDE REPORT GIVEN AT THIS TIME TO BRITTANI DEGROOT. INFORMED TO FOLLOW UP ON HOLD THAT EXPIRES 12/26/19 AT 1830 AND THAT PT WILL RECEIVE 2 UNITS OF PRBC PER TODAY AFTER TYPE SCREEN IS DONE. INFORMED THAT CONSENT IS NEEDED FOR COLONOSCOPY/ENDOSCOPY. SITTER STILL WITH PATIENT AT BEDSIDE. ENDORSED FOR CONTINUITY OF CARE.
[2019-12-26 13:08] LABS: BASOPHILS % (AUTO) 0.2 % (0.0-2.0); LYMPHOCYTES # (AUTO) 1.9 /CMM (0.8-4.8); LYMPHOCYTES % (AUTO) 10.8 % (20.0-44.0); MEAN CORPUSCULAR HGB CONC 34 g/dl (31.0-36.0); MEAN CORPUSCULAR VOLUME 86 fL (80-96); MONOCYTES # (AUTO) 0.3 /CMM (0.1-1.30); PLATELET COUNT (AUTO) 272 /CMM (150-450); RED BLOOD CELL COUNT(AUTO) 2.04 MIL/uL (4.5-6.0); WHITE BLOOD COUNT (AUTO) 17.2 K/uL (4.3-11.0)
[2019-12-26 13:12] LABS: HEMATOCRIT 18 % (39-51); HEMOGLOBIN 5.9 g/dL (13.5-17.5)
[2019-12-26 13:25] LABS: LYMPHOCYTES % (MANUAL) 15 % (16-48); METAMYELOCYTES % 1 % (0-0); MONOCYTES % (MANUAL) 2 % (0-11.0); NEUTROPHILS % (MANUAL) 82 (42-76)
[2019-12-26] MEDS: MORPHINE SULFATE INJ 2 MG/ML DISP.SYRIN IV PRN (13:44)
[2019-12-26] MEDS ORDERED: IV NS 0.9% 500 ML IV ONE (15:00)
[2019-12-26] MEDS: LORAZEPAM 0.5 MG TABLET PO PRN ×2 (18:53→21:59)
--- NOTE | 2019-12-26 19:00 | NUR ---
DROSOPHERE OPERATOR SHIFT SUMMARY Patient A/Ox4. Initially, patient stated "I'm depressed, don't leave me alone". When asked if he has thoughts of harming himself, he said yes. Notified primary hospitalist and nursing supervisor welding equipment repairer. Per Matthew Del Real is on the case, look at her notes. Nursing supervisor welding equipment repairer Serenity de la cruz of note saying 1:1 per nursing for safety, sitter requested, not given. Blood transfusion 1U of 2U completed without reaction noted. EGD consent + NPO diet deferred to restaurant shift supervisor.
[2019-12-26] MEDS ORDERED: PEG 3350/NA SULF,BICARB,CL/KCL 4,000 ML BOTTLE PO ONE (20:00)
[2019-12-26] MEDS: TAMSULOSIN 0.4 MG CAP.SR.24H PO SCH (21:56)
[2019-12-26] MEDS: PANTOPRAZOLE 40 MG VIAL IV SCH (21:56)
--- NOTE | 2019-12-26 22:41 | NUR ---
ICU/RN OPENING NOTE RECEIVED PATIENT IN BED CURRENTLY A/O X4 ON ROOM AIR WITH NO SIGN OF ANY DISTRESS OR SOB. PATIENT ON THE MONITOR IS NSR WITH HR IN THE 90'S. ON GOING MONITOR SHOWING STABLE VITALS. NO FEVER NOTED. PATIENT HAS A PANKAJ MIDLINE CURRENTLY WITH BLOOD TRANSFUSION RUNNING. PATIENT DOES NOT SHOW SIGN OF COUNTER INTERACTION WITH THE TRANSFUSION. PATIENT ALSO HAS A RFA IV PATENT AND FLUSHED WITH NO SIGN OF ANY INFILTRATION. ALL SAFETY PRECATIONS HAVE BEEN APPLIED. WILL CONTINUE TO MONITOR PATIENT THROUGHOUT SHIFT.
[2019-12-26] MEDS ORDERED: VANCOMYCIN 1 GM VIAL ONE (22:55)
--- NOTE | 2019-12-26 23:16 | NUR ---
ICU/NOTE PATIENT DOES NOT STATE OF HURTING HIMSELF OR OTHERS AT THE MOMENT BUT DOES SAY THAT HE IS FEELING DEPRESSED. WILL CONTINUE TO MONITOR
--- NOTE | 2019-12-26 23:29 | NUR ---
ICU/RN COMPLETED 2ND BAG OF BLOOD TRANSFUSION. PATIENT IN NO SIGN OF DISTRESS AND DOES NOT COMPLAIN OF ANY UNCOMFORTED OR PAIN
[2019-12-27] VITALS (35 sets, daily range): BP systolic 77–138; BP diastolic 45–78
[2019-12-27 05:39] LABS: VALPROIC ACID 45 ug/mL (50-100)
[2019-12-27 05:45] LABS: CALCIUM, SERUM 7.3 mg/dL (8.5-10.1); CARBON DIOXIDE 28 mmol/L (21-32); CHLORIDE 91 mmol/L (98-107); CREATININE 1.4 mg/dL (0.6-1.3); GLUCOSE 102 mg/dL (74-106); POTASSIUM 3.5 mmol/L (3.5-5.1); SODIUM SERUM 125 mmol/L (136-145); UREA NITROGEN, BLOOD 36 mg/dL (7-18)
[2019-12-27] MEDS ORDERED: SORBITOL SOLUTION 30 ML PO SCH (06:00)
[2019-12-27 06:12] LABS: BASOPHILS # (AUTO) 0.1 /CMM (0.0-0.2); BASOPHILS % (AUTO) 0.4 % (0.0-2.0); EOSINOPHILS % (AUTO) 0.1 % (0.0-6.0); HEMATOCRIT 21 % (39-51); HEMOGLOBIN 7.2 g/dL (13.5-17.5); LYMPHOCYTES # (AUTO) 2.3 /CMM (0.8-4.8); LYMPHOCYTES % (AUTO) 12.1 % (20.0-44.0); MEAN CORPUSCULAR HGB CONC 34 g/dl (31.0-36.0); MEAN CORPUSCULAR VOLUME 85 fL (80-96); MONOCYTES # (AUTO) 0.6 /CMM (0.1-1.30); MONOCYTES % (AUTO) 2.9 % (2.0-12.0); NEUTROPHILS # (AUTO) 16.2 /CMM (1.8-8.9); NEUTROPHILS % (AUTO) 84.5 % (43.0-81.0); PLATELET COUNT (AUTO) 228 /CMM (150-450); RED BLOOD CELL COUNT(AUTO) 2.47 MIL/uL (4.5-6.0); WHITE BLOOD COUNT (AUTO) 19.1 K/uL (4.3-11.0)
[2019-12-27 06:35] LABS: BAND % (MANUAL) 4 % (0.0-5.0); LYMPHOCYTES % (MANUAL) 11 % (16-48); MONOCYTES % (MANUAL) 8 % (0-11.0); NEUTROPHILS % (MANUAL) 77 (42-76)
--- NOTE | 2019-12-27 07:30 | NUR ---
ICU/RN AM NOTE RECEIVED PATIENT IN BED, A/O X4 ON ROOM AIR WITH NO SIGN OF ANY DISTRESS OR SOB. RESPIRATION UNLABORED, ST HR 117, ON THE MONITOR, DENIES PAIN OR ANY DISCOMFORT AT THIS TIME, PANKAJ MIDLINE FLUSHES WELL, CDI DRESSING, SITE CLEAR. PATIENT IS NPO FOR SCHEDULED EGD AND COLONOSCOPY. SEE NURSING FLOWSHEET FOR SKIN ISSUES. CALL SAFETY PRECAUTIONS HAVE BEEN APPLIED. WILL CONTINUE TO MONITOR PATIENT THROUGHOUT SHIFT.
--- NOTE | 2019-12-27 07:58 | NUR ---
ICU/RN CLOSING NOTE PATIENT IN BED WITH NO SIGN OF ANY DISTRESS AND ON ROOM AIR WITH NO SIGN OF ANY SOB. PATIENT ON THE MONITOR SHOWING NSR HR IN THE 90'S. PATIENT HAS A PANKAJ MIDLINE PATENT AND FLUSHING. ALL SAFETY PRECUATIONS APPLIED. ENDORSED PATIENT TO MORNING SHIFT NURSE FOR ADEN.
[2019-12-27] MEDS: DIVALPROEX SODIUM 125 MG CAP.SPRINK PO SCH ×3 (08:00→17:25)
[2019-12-27] MEDS: PANTOPRAZOLE 40 MG VIAL IV SCH ×2 (08:50→22:05)
[2019-12-27] MEDS ORDERED: ANESTHESIA TRAY IN PYXIS 1 EA TRAY MC ONE ×2 (08:59→09:56)
[2019-12-27] MEDS: METOPROLOL SUCCINATE 25 MG TAB.SR.24H PO SCH (09:00)
[2019-12-27] MEDS: AMIODARONE HCL 200 MG TABLET PO SCH (09:00)
[2019-12-27] MEDS: DULOXETINE HCL 30 MG CAPSULE.DR PO SCH (09:00)
[2019-12-27] MEDS: OXYBUTYNIN CHLORIDE ER 5 MG TAB PO SCH ×2 (09:00→17:26)
[2019-12-27] MEDS: FINASTERIDE (5 MG) 5 MG TABLET PO SCH (09:00)
[2019-12-27] MEDS: FUROSEMIDE 80 MG TABLET PO SCH (09:00)
--- NOTE | 2019-12-27 09:03 | NUR ---
DIGITAL CONTROLS TECHNICAL OFFICER NOTES PATIENTS PICKED UP FOR PROCEDURE.
[2019-12-27] MEDS ORDERED: ETOMIDATE 2 MG/ML VIAL ONE (09:55)
--- NOTE | 2019-12-27 10:45 | NUR ---
RN NOTES PATIENT BACK FROM PROCEDURE. S/P EGD AND COLONOSCOPY BY DR. CASSIDY. UNREMARKABLE EGD COLONOSCOPY: PER DR. CASSIDY: Few small diverticulae in sigmoid colon,Blood tinged liquid stool on entire colon Colon exam otherwise normal. Recommendations: Serial CBC (every 4 hours ) ; PRBC transfusion as needed to keep hb > 7g /dl ; May consider bleeding scan if patient continue to bleed; IR consult for CT angiogram and possible angiogram with embolization of feeding artery if patient continue to bleed
[2019-12-27] MEDS: VANCOMYCIN 1 GM in IV D5W 250 ML IV SCH ×2 (11:34→22:05)
--- NOTE | 2019-12-27 13:25 | NUR ---
RN NOTES URINE SPECIMEN COLLECTED AND SENT TO LAB
[2019-12-27 15:29] LABS: APPEARANCE,URINE CLEAR (CLEAR); BILIRUBIN,URINE NEGATIVE (NEGATIVE); BLOOD, URINE NEGATIVE Ery/uL (NEGATIVE); COLOR,URINE DARK YELLO (YELLOW); KETONES,URINE TRACE (NEGATIVE); LEUKOCYTE ESTERASE ,URINE NEGATIVE (NEGATIVE); NITRITE, URINE NEGATIVE (NEGATIVE); PROTEIN,URINE NEGATIVE (NEGATIVE); UGLUCOSE NEGATIVE (NEGATIVE); UROBILINOGEN,URINE 0.2 EU/dL (0.2)
[2019-12-27 15:44] LABS: URINE SODIUM, RANDOM < 5 mmol/l (40-220); URINE TOTAL PROTEIN 38.8 mg/dL (0-11.9)
[2019-12-27 15:50] LABS: OSMOLALITY,URINE 510 mOS/kg (340-1090)
[2019-12-27 16:43] LABS: RBC,URINE NONE SEEN /HPF (0-2); WBC,URINE NONE SEEN /HPF (0-3)
[2019-12-27 16:44] LABS: BACTERIA,URINE Rare /HPF (None Seen); MUCUS,URINE Few /LPF (None Seen)
[2019-12-27 16:47] LABS: BASOPHILS # (AUTO) 0.1 /CMM (0.0-0.2); BASOPHILS % (AUTO) 0.3 % (0.0-2.0); EOSINOPHILS % (AUTO) 0.2 % (0.0-6.0); LYMPHOCYTES # (AUTO) 3.2 /CMM (0.8-4.8); LYMPHOCYTES % (AUTO) 17.4 % (20.0-44.0); MEAN CORPUSCULAR HGB CONC 35 g/dl (31.0-36.0); MEAN CORPUSCULAR VOLUME 86 fL (80-96); MONOCYTES # (AUTO) 1.1 /CMM (0.1-1.30); MONOCYTES % (AUTO) 6.1 % (2.0-12.0); NEUTROPHILS # (AUTO) 14.1 /CMM (1.8-8.9); PLATELET COUNT (AUTO) 233 /CMM (150-450); WHITE BLOOD COUNT (AUTO) 18.6 K/uL (4.3-11.0)
[2019-12-27 16:50] LABS: RED BLOOD CELL COUNT(AUTO) 1.96 MIL/uL (4.5-6.0)
[2019-12-27 16:52] LABS: HEMATOCRIT 17 % (39-51); HEMOGLOBIN 5.9 g/dL (13.5-17.5)
--- NOTE | 2019-12-27 17:00 | NUR ---
RN NOTES HGB LEVEL 5.9. WILL GIVE 2 UNITS PRBC. ROSALINDA VELÁZQUEZ NOTIFIED.
[2019-12-27 18:23] LABS: EOSINOPHIL,URINE None Seen
[2019-12-27 18:24] LABS: LYMPHOCYTES % (MANUAL) 15 % (16-48); MONOCYTES % (MANUAL) 2 % (0-11.0); NEUTROPHILS % (MANUAL) 83 (42-76)
--- NOTE | 2019-12-27 19:29 | NUR ---
ICU/RN CLOSING NOTE PATIENT IN BED, A/O X4 ON ROOM AIR WITH NO SIGN OF ANY DISTRESS OR SOB. RESPIRATION UNLABORED, SR TO ST ON THE MONITOR, DENIES PAIN OR ANY DISCOMFORT AT THIS TIME, PANKAJ MIDLINE FLUSHES WELL, CDI DRESSING, SITE CLEAR. ONGOING BLOOD TRANSFUSION 1ST BAG PRBC. NO ADVERSE REACTION NOTED, ON CLEAR LIQUID DIET. CALL SAFETY PRECAUTIONS HAVE BEEN APPLIED. ALL NEEDS MET. NO OTHER SIGNIFICANT CHANGE. ENDORSED TO NEXT SHIFT FOR ADEN.
--- NOTE | 2019-12-27 21:33 | NUR ---
VS 97.9 95 - 18 126/64 FOR BLOOD INFUSION CHUY WELL
[2019-12-27] MEDS: TAMSULOSIN 0.4 MG CAP.SR.24H PO SCH (22:05)
[2019-12-27] MEDS: MORPHINE SULFATE INJ 2 MG/ML DISP.SYRIN IV PRN (22:06)
--- NOTE | 2019-12-27 22:12 | NUR ---
2202 VS 98.2 -99-18 132/52 BLOOD STILL INFUSING NO REACTION NOTED
--- NOTE | 2019-12-27 22:32 | NUR ---
VS 97.6 -90- 18 120/57 BLOOD STILL INFUSING WITHOUT INCIDENT
--- NOTE | 2019-12-27 23:38 | NUR ---
PT FINISHED AT 5345 VS 97.9 - 92-20 126/62 NO REACTION NOTED
[2019-12-28] VITALS (47 sets, daily range): BP systolic 84–137; BP diastolic 24–78
[2019-12-28 04:57] LABS: BASOPHILS # (AUTO) 0.1 /CMM (0.0-0.2); BASOPHILS % (AUTO) 0.5 % (0.0-2.0); EOSINOPHILS % (AUTO) 1.4 % (0.0-6.0); HEMATOCRIT 21 % (39-51); HEMOGLOBIN 7.3 g/dL (13.5-17.5); LYMPHOCYTES % (AUTO) 15.1 % (20.0-44.0); MEAN CORPUSCULAR HGB CONC 34 g/dl (31.0-36.0); MEAN CORPUSCULAR VOLUME 86 fL (80-96); MONOCYTES # (AUTO) 0.6 /CMM (0.1-1.30); MONOCYTES % (AUTO) 4.2 % (2.0-12.0); NEUTROPHILS # (AUTO) 10.4 /CMM (1.8-8.9); NEUTROPHILS % (AUTO) 78.8 % (43.0-81.0); PLATELET COUNT (AUTO) 210 /CMM (150-450); RED BLOOD CELL COUNT(AUTO) 2.47 MIL/uL (4.5-6.0); WHITE BLOOD COUNT (AUTO) 13.2 K/uL (4.3-11.0)
[2019-12-28 05:08] LABS: ALBUMIN 1.7 g/dL (3.4-5.0); BILIRUBIN,TOTAL 0.6 mg/dL (0.2-1.0); CALCIUM, SERUM 6.6 mg/dL (8.5-10.1); MAGNESIUM 1.6 mg/dL (1.8-2.4); PHOSPHORUS 2.7 mg/dL (2.5-4.9); TOTAL PROTEIN, SERUM 4.3 g/dL (6.4-8.2)
[2019-12-28] MEDS ORDERED: DIVALPROEX SODIUM 125 MG CAP.SPRINK PO SCH (08:00)
--- NOTE | 2019-12-28 08:00 | NUR ---
ICU/RN: During AM assessment pt states thoughts of but no plan. Safety measures in place. cafe server aware.
[2019-12-28] MEDS: FUROSEMIDE 40 MG TABLET PO SCH (08:09)
[2019-12-28] MEDS: OXYBUTYNIN CHLORIDE ER 5 MG TAB PO SCH ×2 (08:09→16:32)
[2019-12-28] MEDS: PANTOPRAZOLE 40 MG VIAL IV SCH ×2 (08:09→21:34)
[2019-12-28] MEDS: DULOXETINE HCL 30 MG CAPSULE.DR PO SCH (08:09)
[2019-12-28] MEDS: FINASTERIDE (5 MG) 5 MG TABLET PO SCH (08:09)
[2019-12-28] MEDS: METOPROLOL SUCCINATE 25 MG TAB.SR.24H PO SCH (08:10)
[2019-12-28] MEDS: AMIODARONE HCL 200 MG TABLET PO SCH (08:13)
[2019-12-28] MEDS: DIVALPROEX SODIUM 125 MG CAP.SPRINK PO SCH ×3 (08:13→16:31)
[2019-12-28] MEDS: MORPHINE SULFATE INJ 2 MG/ML DISP.SYRIN IV PRN ×2 (08:35→16:32)
--- NOTE | 2019-12-28 09:45 | NUR ---
ICU/RN: Dr Crowe at bedside; informed of bloody stools overnight and am. Recommends transfer to another hospital for higher level of care.
--- NOTE | 2019-12-28 10:30 | NUR ---
DENIES ANY SUICIDAL IDEATIONS, NO PLAN. REMAINED ON PRECAUTIONS. FREQUENT VISUAL CHECKS DONE. WILL CONTINUE TO MONITOR = I
[2019-12-28] MEDS: VANCOMYCIN 0.75 GM in IV D5W 250 ML IV SCH ×2 (11:54→22:09)
[2019-12-28 12:18] LABS: BASOPHILS # (AUTO) 0.1 /CMM (0.0-0.2); BASOPHILS % (AUTO) 0.5 % (0.0-2.0); EOSINOPHILS % (AUTO) 1.6 % (0.0-6.0); HEMATOCRIT 21 % (39-51); HEMOGLOBIN 7.1 g/dL (13.5-17.5); LYMPHOCYTES # (AUTO) 1.6 /CMM (0.8-4.8); LYMPHOCYTES % (AUTO) 11.8 % (20.0-44.0); MEAN CORPUSCULAR HGB CONC 34 g/dl (31.0-36.0); MEAN CORPUSCULAR VOLUME 87 fL (80-96); MONOCYTES # (AUTO) 0.5 /CMM (0.1-1.30); MONOCYTES % (AUTO) 3.9 % (2.0-12.0); NEUTROPHILS # (AUTO) 10.9 /CMM (1.8-8.9); NEUTROPHILS % (AUTO) 82.2 % (43.0-81.0); PLATELET COUNT (AUTO) 245 /CMM (150-450); RED BLOOD CELL COUNT(AUTO) 2.41 MIL/uL (4.5-6.0); WHITE BLOOD COUNT (AUTO) 13.2 K/uL (4.3-11.0)
[2019-12-28] MEDS ORDERED: POTASSIUM CHLORIDE 20 MEQ POWDER PACKET PO ONE (13:00)
--- NOTE | 2019-12-28 14:00 | NUR ---
ICU/RN: Wound care, hygienic care rendered. Pt repositioned for comfort. Poor appetite noted.
[2019-12-28] MEDS: Magnesium 1GM/D5W 100ML PREMIX 100 ML IV SCH ×2 (14:33→15:35)
--- NOTE | 2019-12-28 16:45 | NUR ---
ICU/RN: F/U with lab regarding q4h CBC draw scheduled at 1600; per hoisting laborer; audit practice intern is on the way.
--- NOTE | 2019-12-28 18:00 | NUR ---
ICU/RN: Dr Del Real at bedside; updated on pt status. Aware of pt thoughts of .
[2019-12-28 19:06] LABS: BASOPHILS # (AUTO) 0.1 /CMM (0.0-0.2); BASOPHILS % (AUTO) 0.4 % (0.0-2.0); EOSINOPHILS % (AUTO) 0.7 % (0.0-6.0); LYMPHOCYTES # (AUTO) 1.8 /CMM (0.8-4.8); LYMPHOCYTES % (AUTO) 9.8 % (20.0-44.0); MEAN CORPUSCULAR HGB CONC 34 g/dl (31.0-36.0); MEAN CORPUSCULAR VOLUME 87 fL (80-96); MONOCYTES # (AUTO) 0.8 /CMM (0.1-1.30); MONOCYTES % (AUTO) 4.2 % (2.0-12.0); NEUTROPHILS # (AUTO) 15.2 /CMM (1.8-8.9); NEUTROPHILS % (AUTO) 84.9 % (43.0-81.0); PLATELET COUNT (AUTO) 249 /CMM (150-450); RED BLOOD CELL COUNT(AUTO) 2.21 MIL/uL (4.5-6.0); WHITE BLOOD COUNT (AUTO) 17.9 K/uL (4.3-11.0)
[2019-12-28 19:08] LABS: HEMOGLOBIN 6.6 g/dL (13.5-17.5)
[2019-12-28 19:09] LABS: HEMATOCRIT 19 % (39-51)
--- NOTE | 2019-12-28 19:15 | NUR ---
ICU/RN: Critical h/h received; standing order for blood transfusion received. Care endorsed to jocy RN.
--- NOTE | 2019-12-28 19:15 | NUR ---
ICU/RN NOTES PATIENT RECEIVED IN BED, AWAKE, ALERT AND ORIENTED X 4, WATCHING TV. IN NO ACUTE DISTRESS, BREATHING EVEN AND UNLABORED. NO SOB NOTED. DENIES ANY PAIN AT THIS TIME. WILL TRANSFUSE PATIENT FOR LOW H AND H. LEFT UPPER ARM MIDLINE IN PLACE, PATENT. SINUS RHYTHM ON THE MONITOR. SAFETY MAINTAINED, BED AT THE LOWEST LOCKED POSITION. CALL LIGHT WITHIN REACH. WILL CONTINUE TO MONITOR PER PLAN OF CARE.
[2019-12-28] MEDS: TAMSULOSIN 0.4 MG CAP.SR.24H PO SCH (21:34)
[2019-12-28 21:51] LABS: BAND % (MANUAL) 7 % (0.0-5.0); EOSINOPHILS % (MANUAL) 1 % (0-4); LYMPHOCYTES % (MANUAL) 13 % (16-48); MONOCYTES % (MANUAL) 4 % (0-11.0); MYELOCYTES % 1 % (0-0); NEUTROPHILS % (MANUAL) 74 (42-76)
[2019-12-28 23:35] LABS: HEMOGLOBIN 7.8 g/dL (13.5-17.5)
[2019-12-29] VITALS (36 sets, daily range): BP systolic 81–128; BP diastolic 41–73
[2019-12-29] MEDS: TEMAZEPAM 7.5 MG CAPSULE PO PRN ×2 (01:37→21:07)
[2019-12-29 04:32] LABS: BASOPHILS % (AUTO) 0.3 % (0.0-2.0); EOSINOPHILS % (AUTO) 0.9 % (0.0-6.0); HEMOGLOBIN 7.1 g/dL (13.5-17.5); LYMPHOCYTES # (AUTO) 1.7 /CMM (0.8-4.8); LYMPHOCYTES % (AUTO) 11.7 % (20.0-44.0); MEAN CORPUSCULAR HGB CONC 35 g/dl (31.0-36.0); MEAN CORPUSCULAR VOLUME 86 fL (80-96); MONOCYTES # (AUTO) 0.7 /CMM (0.1-1.30); MONOCYTES % (AUTO) 4.7 % (2.0-12.0); NEUTROPHILS % (AUTO) 82.4 % (43.0-81.0); PLATELET COUNT (AUTO) 228 /CMM (150-450); RED BLOOD CELL COUNT(AUTO) 2.35 MIL/uL (4.5-6.0); WHITE BLOOD COUNT (AUTO) 14.5 K/uL (4.3-11.0)
[2019-12-29 04:51] LABS: HEMATOCRIT 20 % (39-51)
[2019-12-29 05:00] LABS: CALCIUM, SERUM 6.3 mg/dL (8.5-10.1); CREATININE 0.8 mg/dL (0.6-1.3); POTASSIUM 3.3 mmol/L (3.5-5.1)
[2019-12-29] MEDS ORDERED: SORBITOL SOLUTION 30 ML PO ONE (06:00)
--- NOTE | 2019-12-29 07:15 | NUR ---
ICU/RN NOTES PATIENT REMAINED IN BED, AWAKE, ALERT AND ORIENTED X 3-4, WATCHING TV. IN NO ACUTE DISTRESS, BREATHING EVEN AND UNLABORED. NO SOB NOTED. DENIES ANY PAIN AT THIS TIME. . LEFT UPPER ARM MIDLINE IN PLACE, PATENT. SINUS RHYTHM ON THE MONITOR. DUE MEDS GIVEN ORDERED, TOLERATED WELL. NEEDS ATTENDANT. CALL LIGHT WITHIN REACH. SAFETY MAINTAINED, BED AT THE LOWEST LOCKED POSITION. WILL ENDORSE TO AM SHIFT NURSE FOR ADEN.
--- NOTE | 2019-12-29 07:25 | NUR ---
CONCRETE CARPENTER: pt.was A/Ox1 with first assess, slow speech, was asking: were I am, what happened, got report: A/Ox3-4, reevaluated/reoriented with night nurse, A/Ox3 now, aware re GI bleed Dx and EGD/colonoscopy now, [place],night RN confirmed: s/p CVA long time ago, no acute mental/neuro changes, pt: no any pain now, oriented for POC again, SR, SBp over 100, O2sat over 94%, no SOB on R/A, no acute bleeding event over night by report, H/H 7.11/27, next H/H at 09.00
[2019-12-29] MEDS: DIVALPROEX SODIUM 125 MG CAP.SPRINK PO SCH ×3 (08:22→17:21)
--- NOTE | 2019-12-29 09:07 | NUR ---
MANAGER COMMERCIAL: pt is agree for CTA, denies any meds/food allergy, BIN/creat 17/0.8
--- NOTE | 2019-12-29 09:15 | NUR ---
FUEL OPERATOR: pt.had bloody stool, waiting H/H, called to radiology dep.: we are ready to go, pt.sister called/updated with pt.current condition, VS, POC, got phone#
[2019-12-29] MEDS: DULOXETINE HCL 30 MG CAPSULE.DR PO SCH ×2 (09:22→17:21)
[2019-12-29] MEDS: AMIODARONE HCL 200 MG TABLET PO SCH (09:22)
[2019-12-29] MEDS: FUROSEMIDE 40 MG TABLET PO SCH (09:22)
[2019-12-29] MEDS: METOPROLOL SUCCINATE 25 MG TAB.SR.24H PO SCH (09:22)
[2019-12-29] MEDS: FINASTERIDE (5 MG) 5 MG TABLET PO SCH (09:22)
[2019-12-29] MEDS: PANTOPRAZOLE 40 MG VIAL IV SCH ×2 (09:23→21:07)
[2019-12-29] MEDS: POTASSIUM CL. PREMIX PERIPHER. 50 ML IV SCH ×4 (09:28→13:42)
[2019-12-29] MEDS: Z GUARD REMEDY 2 OZ OINT TP SCH (09:28)
[2019-12-29] MEDS: OXYBUTYNIN CHLORIDE ER 5 MG TAB PO SCH ×2 (09:30→17:34)
[2019-12-29 09:46] LABS: HEMOGLOBIN 8.1 g/dL (13.5-17.5)
--- NOTE | 2019-12-29 10:23 | NUR ---
RELIGIOUS ASSISTANT: H/H 8.12/01, called to radiology department again, pt.c/p stomach, back pain -07/18, no respiratory problem by report before
[2019-12-29] MEDS: MORPHINE SULFATE INJ 2 MG/ML DISP.SYRIN IV PRN (10:28)
[2019-12-29] MEDS ORDERED: IV NS 0.9% 250 ML IV ONE (10:36)
[2019-12-29] MEDS ORDERED: CT SWABBABLE VALVE TRANS SET 1 EA INFUS.SET MC ONE (10:36)
[2019-12-29] MEDS ORDERED: IOHEXOL-350 100 ML VIAL IV ONE (10:36)
--- NOTE | 2019-12-29 11:37 | NUR ---
THREAD SEPARATOR: ITZ BURGESS called: CTA shows active bleeding in stomach, NATIVIDAD Palacios is notified
[2019-12-29] MEDS ORDERED: PIPERACILLIN /TAZOBACTAM 2.25 G in IV D5W 50 ML IV SCH (12:00)
[2019-12-29] MEDS: VANCOMYCIN 0.75 GM in IV D5W 250 ML IV SCH ×2 (12:55→22:47)
--- NOTE | 2019-12-29 13:00 | NUR ---
SET AND EXHIBIT DESIGNER: lab has to re draw blood sample for CBC/coagulated, Vanco level 13/give Vanco PB, waiting transfer process
[2019-12-29] MEDS: ZOSYN IVPB 3.375 G in IV D5W 50ml IV SCH ×2 (13:42→17:21)
[2019-12-29 14:24] LABS: BASOPHILS % (AUTO) 0.4 % (0.0-2.0); EOSINOPHILS % (AUTO) 0.6 % (0.0-6.0); HEMATOCRIT 24 % (39-51); HEMOGLOBIN 8.1 g/dL (13.5-17.5); LYMPHOCYTES # (AUTO) 1.7 /CMM (0.8-4.8); LYMPHOCYTES % (AUTO) 12.6 % (20.0-44.0); MEAN CORPUSCULAR HGB CONC 34 g/dl (31.0-36.0); MEAN CORPUSCULAR VOLUME 89 fL (80-96); MONOCYTES # (AUTO) 0.5 /CMM (0.1-1.30); MONOCYTES % (AUTO) 3.9 % (2.0-12.0); NEUTROPHILS # (AUTO) 11.2 /CMM (1.8-8.9); NEUTROPHILS % (AUTO) 82.5 % (43.0-81.0); PLATELET COUNT (AUTO) 280 /CMM (150-450); WHITE BLOOD COUNT (AUTO) 13.6 K/uL (4.3-11.0)
--- NOTE | 2019-12-29 14:29 | NUR ---
PATTERN AND CHAIN MAKER: got H/H result from lab:
--- NOTE | 2019-12-29 17:13 | NUR ---
WOOD CRAFTER: no bloody stool since morning time, continue H/H monitoring, no c/o now, no n/v, SR, SBP over 100, O2sat WNL, all PM,skin,wound care done, pt spoke with sister, [facility] bed is not available now
[2019-12-29 18:57] LABS: BASOPHILS # (AUTO) 0.1 /CMM (0.0-0.2); BASOPHILS % (AUTO) 0.6 % (0.0-2.0); EOSINOPHILS % (AUTO) 0.6 % (0.0-6.0); HEMATOCRIT 25 % (39-51); HEMOGLOBIN 8.5 g/dL (13.5-17.5); LYMPHOCYTES # (AUTO) 1.7 /CMM (0.8-4.8); LYMPHOCYTES % (AUTO) 11.9 % (20.0-44.0); MEAN CORPUSCULAR HGB CONC 34 g/dl (31.0-36.0); MEAN CORPUSCULAR VOLUME 88 fL (80-96); MONOCYTES # (AUTO) 0.7 /CMM (0.1-1.30); NEUTROPHILS # (AUTO) 11.5 /CMM (1.8-8.9); NEUTROPHILS % (AUTO) 81.9 % (43.0-81.0); PLATELET COUNT (AUTO) 305 /CMM (150-450); RED BLOOD CELL COUNT(AUTO) 2.81 MIL/uL (4.5-6.0); WHITE BLOOD COUNT (AUTO) 14.1 K/uL (4.3-11.0)
--- NOTE | 2019-12-29 19:20 | NUR ---
ICU/RN NOTES PATIENT RECEIVED IN BED, AWAKE, ALERT AND ORIENTED X 4, WATCHING TV. IN NO ACUTE DISTRESS, BREATHING EVEN AND UNLABORED. NO SOB NOTED. DENIES ANY PAIN AT THIS TIME. LEFT UPPER ARM MIDLINE IN PLACE, PATENT. SINUS RHYTHM ON THE MONITOR. SAFETY MAINTAINED, BED AT THE LOWEST LOCKED POSITION. CALL LIGHT WITHIN REACH. WILL CONTINUE TO MONITOR PER PLAN OF CARE.
[2019-12-29] MEDS: TAMSULOSIN 0.4 MG CAP.SR.24H PO SCH (21:07)
[2019-12-30] VITALS (32 sets, daily range): BP systolic 77–114; BP diastolic 35–59
[2019-12-30] MEDS: ZOSYN IVPB 3.375 G in IV D5W 50ml IV SCH ×4 (00:20→17:09)
--- NOTE | 2019-12-30 04:56 | NUR ---
PATIENT BLOOD PRESSURE 85/46 AT THIS TIME. PATIENT AWAKE, ALERT AND ORIENTED TO HIS BASE LINE. IN NO ACUTE DISTRESS, BREATHING EVEN AND UNLABORED. NO SOB NOTED. HOB PUT IN TO [place] POSITION. CALLED DR ADLER, LEFT MESSAGE, WAITING FOR CALL BACK.
[2019-12-30 04:59] LABS: BASOPHILS % (AUTO) 0.4 % (0.0-2.0); HEMATOCRIT 21 % (39-51); HEMOGLOBIN 7.2 g/dL (13.5-17.5); LYMPHOCYTES % (AUTO) 17.9 % (20.0-44.0); MEAN CORPUSCULAR HGB CONC 35 g/dl (31.0-36.0); MEAN CORPUSCULAR VOLUME 88 fL (80-96); MONOCYTES # (AUTO) 0.6 /CMM (0.1-1.30); MONOCYTES % (AUTO) 5.1 % (2.0-12.0); NEUTROPHILS # (AUTO) 8.3 /CMM (1.8-8.9); NEUTROPHILS % (AUTO) 75.6 % (43.0-81.0); PLATELET COUNT (AUTO) 300 /CMM (150-450); RED BLOOD CELL COUNT(AUTO) 2.36 MIL/uL (4.5-6.0)
[2019-12-30 05:13] LABS: CALCIUM, SERUM 6.6 mg/dL (8.5-10.1)
--- NOTE | 2019-12-30 05:16 | NUR ---
DR ADLER CALLED BACK AT THIS TIME, RELAYED PATIENT CONDITION, VITAL SIGNS WITH NEW ORDER FOR NS 0.9% BOLUS OF 500ML. NOTED. WILL CARRY OUT
--- NOTE | 2019-12-30 05:18 | NUR ---
LABS CALLED FOR CRITICAL, POTASSIUM 2.7, CALLED DR ADLER, WAITING FOR RESPONSE
[2019-12-30 05:21] LABS: POTASSIUM 2.7 mmol/L (3.5-5.1)
--- NOTE | 2019-12-30 05:25 | NUR ---
DR ADLER CALLED BACK, RELAYED PATIENT CRITICAL LAB RESULT WITH NEW ORDER. NOTED AND WILL CARRY OUT.
[2019-12-30] MEDS ORDERED: IV NS 0.9% 500 ML IV ONE (05:30)
[2019-12-30] MEDS ORDERED: POTASSIUM CHLORIDE 20 MEQ TAB.PRT.SR PO ONE (06:00)
--- NOTE | 2019-12-30 06:19 | NUR ---
S/P NS 0.9% 500ML BOLUS , BLOOD PRESSURE 103/56
--- NOTE | 2019-12-30 06:55 | NUR ---
PATIENT SEEN AND EXAMINED BY DR TUCKER, WITH NO NEW ORDER AT THIS TIME.
--- NOTE | 2019-12-30 07:16 | NUR ---
Patient remained in stable condition, breathing even and unlabored. no SOB noted. A/O to his base line, denies any pain, Sinus Rhythm on the monitor, Pending transfer to [facility], waiting for the bed, BP stable after the bolus. due meds given, tolerated well. No episode of bloody stool last night, patient slept well. No episode of Nausea vomiting. kept clean and dry. Needs attendant. Call light within reach. Endorse to AM shift nurse for ADEN.
--- NOTE | 2019-12-30 07:20 | NUR ---
LINE SUPERVISOR: pt.is A/Ox2, no c/o now, no pain, no bloody stool over night by report, still pending [facility] bed, H/H 7.2, SR, SBP is 100 now, got 500ml NS bolus morning time/had SBP 80-90, O2sat. over 94% on r/a, no SOB, K+ 2.7/replaced with 80 meq K PO by report, NATIVIDAD Palacios is in room, updated with all above, confirmed: give one PRBC unit if Hb below 7.0, continue H/H monitoring q6h, clear liquid diet, see new orders
--- NOTE | 2019-12-30 08:20 | NUR ---
AUTOMATIC SCREWMAKER: updated with pt.current status, VS, labs, K+2.7/replaced with 80 meq KCl, meds/included lasix, low BP episodes 80-90/one 500 ml NS bolus given morning time, see new orders
[2019-12-30] MEDS: DIVALPROEX SODIUM 125 MG CAP.SPRINK PO SCH ×3 (08:31→16:54)
[2019-12-30] MEDS: MORPHINE SULFATE INJ 2 MG/ML DISP.SYRIN IV PRN (08:32)
[2019-12-30 08:39] LABS: LYMPHOCYTES % (MANUAL) 12 % (16-48); MONOCYTES % (MANUAL) 4 % (0-11.0); NEUTROPHILS % (MANUAL) 84 (42-76)
--- NOTE | 2019-12-30 08:45 | NUR ---
CALL OR CONTACT CENTRE OPERATOR: pt c/o low back pain 06/17, stomach pain 5-04/17, no n/v, O2sat over 95%, no respiratory problem over night by report, had multiple LB surgeries before, Morphine 2 mg IV given
[2019-12-30] MEDS: METOPROLOL SUCCINATE 25 MG TAB.SR.24H PO SCH (09:00)
[2019-12-30] MEDS: PANTOPRAZOLE 40 MG VIAL IV SCH ×2 (09:37→21:34)
[2019-12-30] MEDS: OXYBUTYNIN CHLORIDE ER 5 MG TAB PO SCH ×2 (09:38→16:56)
[2019-12-30] MEDS: DULOXETINE HCL 30 MG CAPSULE.DR PO SCH ×2 (09:38→16:54)
[2019-12-30] MEDS: FINASTERIDE (5 MG) 5 MG TABLET PO SCH (09:38)
[2019-12-30] MEDS: AMIODARONE HCL 200 MG TABLET PO SCH (09:41)
[2019-12-30] MEDS: Z GUARD REMEDY 2 OZ OINT TP SCH (09:42)
[2019-12-30] MEDS: VANCOMYCIN 0.75 GM in IV D5W 250 ML IV SCH (11:28)
--- NOTE | 2019-12-30 11:45 | NUR ---
BEATER DUMPER: spoke with PAMELA Zepeda stock supervisor/updated, let get new info from director case management and follow with
[2019-12-30 12:13] LABS: BASOPHILS # (AUTO) 0.1 /CMM (0.0-0.2); BASOPHILS % (AUTO) 0.4 % (0.0-2.0); EOSINOPHILS % (AUTO) 0.6 % (0.0-6.0); HEMATOCRIT 25 % (39-51); HEMOGLOBIN 8.3 g/dL (13.5-17.5); LYMPHOCYTES # (AUTO) 1.6 /CMM (0.8-4.8); LYMPHOCYTES % (AUTO) 10.7 % (20.0-44.0); MEAN CORPUSCULAR HGB CONC 34 g/dl (31.0-36.0); MEAN CORPUSCULAR VOLUME 90 fL (80-96); MONOCYTES # (AUTO) 0.7 /CMM (0.1-1.30); MONOCYTES % (AUTO) 4.8 % (2.0-12.0); NEUTROPHILS # (AUTO) 12.3 /CMM (1.8-8.9); NEUTROPHILS % (AUTO) 83.5 % (43.0-81.0); PLATELET COUNT (AUTO) 370 /CMM (150-450); RED BLOOD CELL COUNT(AUTO) 2.74 MIL/uL (4.5-6.0); WHITE BLOOD COUNT (AUTO) 14.7 K/uL (4.3-11.0)
--- NOTE | 2019-12-30 14:35 | NUR ---
BREAST BUFFER: is in room, updated with pt.current status, last H/H 8.01/30, no bloody stool since 12/29 morning, VS, I/O, diet, labs, pt.was asking for possible go to home, q6h H/H monitoring, no new info re transfer since yesterday evening, said: if no active bleeding ok to stay in [facility] for 1-2 days and go home, ok to advance diet, continue H/H q6h monitoring
[2019-12-30 20:30] LABS: BASOPHILS % (AUTO) 0.3 % (0.0-2.0); EOSINOPHILS % (AUTO) 0.7 % (0.0-6.0); HEMATOCRIT 23 % (39-51); HEMOGLOBIN 7.7 g/dL (13.5-17.5); LYMPHOCYTES # (AUTO) 1.6 /CMM (0.8-4.8); LYMPHOCYTES % (AUTO) 11.2 % (20.0-44.0); MEAN CORPUSCULAR HGB CONC 34 g/dl (31.0-36.0); MEAN CORPUSCULAR VOLUME 90 fL (80-96); MONOCYTES # (AUTO) 0.9 /CMM (0.1-1.30); MONOCYTES % (AUTO) 6.4 % (2.0-12.0); NEUTROPHILS # (AUTO) 11.3 /CMM (1.8-8.9); NEUTROPHILS % (AUTO) 81.4 % (43.0-81.0); PLATELET COUNT (AUTO) 350 /CMM (150-450); RED BLOOD CELL COUNT(AUTO) 2.52 MIL/uL (4.5-6.0); WHITE BLOOD COUNT (AUTO) 13.9 K/uL (4.3-11.0)
[2019-12-30] MEDS ORDERED: NOREPINEPHRINE 8 MG in IV D5W 500 ML IV PRN ×2 (21:00→21:30)
[2019-12-30] MEDS: TAMSULOSIN 0.4 MG CAP.SR.24H PO SCH ×2 (21:34→22:00)
[2019-12-31] VITALS (24 sets, daily range): BP systolic 103–142; BP diastolic 40–74
[2019-12-31] MEDS: ZOSYN IVPB 3.375 G in IV D5W 50ml IV SCH ×2 (00:01→05:50)
[2019-12-31 00:58] LABS: HEMOGLOBIN 6.9 g/dL (13.5-17.5)
--- NOTE | 2019-12-31 04:20 | NUR ---
BLOOD INFUSED WITHOUT ANY REACTION
[2019-12-31 05:45] LABS: BASOPHILS # (AUTO) 0.1 /CMM (0.0-0.2); BASOPHILS % (AUTO) 0.9 % (0.0-2.0); EOSINOPHILS % (AUTO) 1.1 % (0.0-6.0); HEMATOCRIT 24 % (39-51); HEMOGLOBIN 8.3 g/dL (13.5-17.5); LYMPHOCYTES # (AUTO) 1.2 /CMM (0.8-4.8); LYMPHOCYTES % (AUTO) 12.3 % (20.0-44.0); MEAN CORPUSCULAR HGB CONC 35 g/dl (31.0-36.0); MEAN CORPUSCULAR VOLUME 90 fL (80-96); MONOCYTES # (AUTO) 0.6 /CMM (0.1-1.30); NEUTROPHILS % (AUTO) 79.7 % (43.0-81.0); PLATELET COUNT (AUTO) 334 /CMM (150-450); RED BLOOD CELL COUNT(AUTO) 2.66 MIL/uL (4.5-6.0); WHITE BLOOD COUNT (AUTO) 10.1 K/uL (4.3-11.0)
[2019-12-31 06:03] LABS: CALCIUM, SERUM 6.9 mg/dL (8.5-10.1); CREATININE 0.9 mg/dL (0.6-1.3); POTASSIUM 3.4 mmol/L (3.5-5.1)
--- NOTE | 2019-12-31 08:00 | NUR ---
SATELLITE DISH TECHNICIAN NOTE RECEIVED PATIENT IN ED AWAKE, ALERT NON ACTIVE BLEEDING NOTED AT THIS TIME , NO BM NOTED , ON EA SAT 98% AT THIS TIME , ON TELE MONITOR SR HR 88, PANKAJ MID LINE IN PLACE AND FLUSHED WELL , BED IN ,LOWEST AND LOCKED POSITION DR TELLEZ AT BEDSIDE AWARE THAT HG 8.3 TODAY, PLAN OF CARE DISCUSSED WITH PATIENT ,ALL NEEDS ATTENDED, WILL MONITOR
[2019-12-31] MEDS: DIVALPROEX SODIUM 125 MG CAP.SPRINK PO SCH ×3 (08:48→16:49)
[2019-12-31] MEDS: POTASSIUM CHLORIDE 20 MEQ TAB.PRT.SR PO SCH ×2 (08:49→10:03)
[2019-12-31] MEDS: DULOXETINE HCL 30 MG CAPSULE.DR PO SCH ×2 (08:49→16:49)
[2019-12-31] MEDS: FINASTERIDE (5 MG) 5 MG TABLET PO SCH (08:50)
[2019-12-31] MEDS: AMIODARONE HCL 200 MG TABLET PO SCH (08:50)
[2019-12-31] MEDS: PANTOPRAZOLE 40 MG VIAL IV SCH ×2 (08:51→21:24)
[2019-12-31] MEDS: MORPHINE SULFATE INJ 2 MG/ML DISP.SYRIN IV PRN (08:51)
[2019-12-31] MEDS: METOPROLOL SUCCINATE 25 MG TAB.SR.24H PO SCH (08:51)
[2019-12-31] MEDS: OXYBUTYNIN CHLORIDE ER 5 MG TAB PO SCH ×2 (09:02→16:49)
[2019-12-31] MEDS: Z GUARD REMEDY 2 OZ OINT TP SCH (09:03)
[2019-12-31] MEDS: OCTREOTIDE 1,250 MCG in IV NS 0.9% 247.5 ML IV PRN (10:05)
--- NOTE | 2019-12-31 10:30 | NUR ---
NURSE SITTER NOTE CALLED TO SUPERVISOR GROVE PROMISE ,NO BED ALIBLE AT [facility] YET WILL F\U
--- NOTE | 2019-12-31 12:00 | NUR ---
ADVERTISING MANAGER NOTE CONT ON SANDOSTATIN DRIP CONT ORDERED, NOT IN DISTRESS
[2019-12-31 12:54] LABS: BASOPHILS % (AUTO) 0.4 % (0.0-2.0); EOSINOPHILS % (AUTO) 0.3 % (0.0-6.0); HEMATOCRIT 28 % (39-51); HEMOGLOBIN 9.2 g/dL (13.5-17.5); LYMPHOCYTES # (AUTO) 1.3 /CMM (0.8-4.8); LYMPHOCYTES % (AUTO) 11.3 % (20.0-44.0); MEAN CORPUSCULAR HGB CONC 34 g/dl (31.0-36.0); MEAN CORPUSCULAR VOLUME 92 fL (80-96); MONOCYTES # (AUTO) 0.6 /CMM (0.1-1.30); MONOCYTES % (AUTO) 5.8 % (2.0-12.0); NEUTROPHILS # (AUTO) 9.2 /CMM (1.8-8.9); NEUTROPHILS % (AUTO) 82.2 % (43.0-81.0); PLATELET COUNT (AUTO) 369 /CMM (150-450); WHITE BLOOD COUNT (AUTO) 11.2 K/uL (4.3-11.0)
--- NOTE | 2019-12-31 13:00 | NUR ---
BRITTANI GROVES PATIENT TRANSFERRED FROM ICU UNIT IN STABLE CONDITION. PT TRANSFERRED VIA BED WITH MONITOR, VITAL SIGNS STABLE, GOT REPORT FROM MATTEO. PATIENT HAS ACTIVE INTERNAL BLEEDING,CLOSELY MONITORING HGB LEVEL, STANDING ORDER IF HGB UNDER 7 TRANSFUSE 1 UNIT OF BLOOD. PATIENT IS WAITING FOR A BED IN [facility] TO HAVE SURGERY DONE. PT IS CLEAN AND DRY. IN STABLE CONDITION. WILL CONTINUE TO MONITOR CLOSELY.
--- NOTE | 2019-12-31 13:00 | NUR ---
TRANSIT POLICE OFFICER NOTE PER DR TUCKER TRANSFERRED TO [facility] UNDER ACLS PROTOCOL BY BED,REPORT GIVEN TO DEXTER PETER
[2019-12-31 13:14] LABS: HEMATOCRIT 28 % (39-51); HEMOGLOBIN 9.2 g/dL (13.5-17.5); MEAN CORPUSCULAR HGB CONC 33 g/dl (31.0-36.0); MEAN CORPUSCULAR VOLUME 91 fL (80-96); PLATELET COUNT (AUTO) 376 /CMM (150-450); RED BLOOD CELL COUNT(AUTO) 3.05 MIL/uL (4.5-6.0); WHITE BLOOD COUNT (AUTO) 11.4 K/uL (4.3-11.0)
[2019-12-31 20:30] LABS: BASOPHILS # (AUTO) 0.1 /CMM (0.0-0.2); BASOPHILS % (AUTO) 0.7 % (0.0-2.0); EOSINOPHILS % (AUTO) 0.9 % (0.0-6.0); HEMATOCRIT 25 % (39-51); HEMOGLOBIN 8.4 g/dL (13.5-17.5); LYMPHOCYTES # (AUTO) 1.2 /CMM (0.8-4.8); LYMPHOCYTES % (AUTO) 12.5 % (20.0-44.0); MEAN CORPUSCULAR HGB CONC 34 g/dl (31.0-36.0); MEAN CORPUSCULAR VOLUME 92 fL (80-96); MONOCYTES # (AUTO) 0.6 /CMM (0.1-1.30); MONOCYTES % (AUTO) 5.7 % (2.0-12.0); NEUTROPHILS % (AUTO) 80.2 % (43.0-81.0); PLATELET COUNT (AUTO) 379 /CMM (150-450); RED BLOOD CELL COUNT(AUTO) 2.72 MIL/uL (4.5-6.0)
[2019-12-31] MEDS: LORAZEPAM 0.5 MG TABLET PO PRN (21:24)
[2019-12-31] MEDS: TAMSULOSIN 0.4 MG CAP.SR.24H PO SCH (21:24)
[2020-01-01] VITALS (8 sets, daily range): BP systolic 108–147; BP diastolic 52–82
[2020-01-01] MEDS: OCTREOTIDE 1,250 MCG in IV NS 0.9% 247.5 ML IV PRN ×2 (06:26→12:35)
--- NOTE | 2020-01-01 07:11 | NUR ---
RNCLOSING NOTES PATIENT AWAKE IN BED, VERBALLY RESPONSIVE, NO SIGNS OF DISTRESS NOTED. NO ACUTE CHANGES TO PATIENT CONDITION DURING MY SHIFT. ALL PATIENT NEEDS MET. NO COMPLAINS OF CHEST PAIN OR SOB AT THIS TIME. PT ON ROOM AIR, TOLERATING WELL, SATURATING @97%. PATIENT COOPERATIVE WITH MED REGIME. SANDOSTATIN RUNNING CONTINUOUSLY AT 10ML/HR PER MD ORDER. HEMOGLOBIN LEVEL CLOSELY MONITORED, 8.4 LAST DRAW. ENDORSED TO RECORD CENTER SPECIALIST REGARDING STANDING ORDER FOR BLOOD TRANSFUSION IF HGB BELOW 7. PATIENT IS WAITING FOR A BED IN [facility], GOT A CALL FROM [facility] SAYING THAT SINCE THE PATIENT HAS BEEN DOWNGRADED, THEY WILL BE LOOKING FOR A TELE BED INSTEAD OF ICU WHICH MIGHT DELAY THINGS. ENDORSES TO AM NURSE. SAFETY MAINTAINED, CALL LIGHT WITHIN REACH, ENDORSED TO RECORD CENTER SPECIALIST NURSE TO CONTINUE CARE.
[2020-01-01 07:43] LABS: CREATININE 0.8 mg/dL (0.6-1.3)
--- NOTE | 2020-01-01 07:46 | NUR ---
RN OPENING NOTE RECEIVED PATIENT RESTING IN BED COMFORTABLY, NO S/SX OF DISTRESS NOTED. PT IS AOX3, VERBAL, AND ON BEDREST. HE IS ON RA, TOLERATING WELL, NO SOB OR RESP DISTRESS. TELE MONITOR SHOWING NSR. SKIN IS NOT INTACT, PT HAS ST 3 ULCER ON SACRUM, WILL ADDRESS PER WOUND CARE PLAN. HE IS ON PURRED DIET, TOLERATING WELL. PANKAJ MIDLINE IS PATENT AND INTACT, INFUSING SANDOSTATIN AT 50 MCG/HR, TOLERATING WELL. PT REFUSED ASSESSMENT OF LUNG SOUNDS AND MORNING VITAL SIGNS. PENDING PLACEMENT, LOOKING FOR STEPDOWN BED AT [facility]. SAFETY MEASURES HAVE BEEN IMPLEMENTED, CALL LIGHT IS WITHIN REACH, BED IS IN LOWEST AND LOCKED POSITION, SIDE RAILS UP X2, WILL CONTINUE TO MONITOR FOR ANY CHANGES.
[2020-01-01] MEDS: PANTOPRAZOLE 40 MG VIAL IV SCH ×2 (08:32→21:50)
[2020-01-01] MEDS: OXYBUTYNIN CHLORIDE ER 5 MG TAB PO SCH ×2 (08:33→16:24)
[2020-01-01] MEDS: METOPROLOL SUCCINATE 25 MG TAB.SR.24H PO SCH (08:33)
[2020-01-01] MEDS: MORPHINE SULFATE INJ 2 MG/ML DISP.SYRIN IV PRN (08:33)
[2020-01-01] MEDS: AMIODARONE HCL 200 MG TABLET PO SCH (08:34)
[2020-01-01] MEDS: DULOXETINE HCL 30 MG CAPSULE.DR PO SCH ×2 (08:34→16:24)
[2020-01-01] MEDS: FINASTERIDE (5 MG) 5 MG TABLET PO SCH (08:34)
[2020-01-01] MEDS: Z GUARD REMEDY 2 OZ OINT TP SCH (08:35)
[2020-01-01] MEDS: DIVALPROEX SODIUM 125 MG CAP.SPRINK PO SCH ×3 (08:35→16:24)
[2020-01-01] MEDS ORDERED: ACETAMINOPHEN 325 MG TABLET PO PRN (12:00)
[2020-01-01] MEDS: PROSOURCE / PROSTAT (PYXIS) 30 ML UDC GT SCH ×2 (14:26→16:24)
--- NOTE | 2020-01-01 16:11 | NUR ---
RN NOTES PATIENT IS AGITATED BECAUSE OF DELAYED TRANSFER TO [facility]. HE IS BEING UNCOOPERATIVE AND IS REFUSING TO HAVE HIS CLOTHES PRESSER, WILL CONTINUE TO MONITOR FOR ANY CHANGES.
[2020-01-01 18:36] LABS: BASOPHILS # (AUTO) 0.1 /CMM (0.0-0.2); BASOPHILS % (AUTO) 1.5 % (0.0-2.0); EOSINOPHILS % (AUTO) 0.6 % (0.0-6.0); HEMATOCRIT 25 % (39-51); HEMOGLOBIN 8.3 g/dL (13.5-17.5); LYMPHOCYTES # (AUTO) 1.6 /CMM (0.8-4.8); LYMPHOCYTES % (AUTO) 16.6 % (20.0-44.0); MEAN CORPUSCULAR HGB CONC 34 g/dl (31.0-36.0); MEAN CORPUSCULAR VOLUME 91 fL (80-96); MONOCYTES # (AUTO) 0.5 /CMM (0.1-1.30); MONOCYTES % (AUTO) 4.7 % (2.0-12.0); NEUTROPHILS # (AUTO) 7.5 /CMM (1.8-8.9); NEUTROPHILS % (AUTO) 76.6 % (43.0-81.0); PLATELET COUNT (AUTO) 464 /CMM (150-450); RED BLOOD CELL COUNT(AUTO) 2.71 MIL/uL (4.5-6.0); WHITE BLOOD COUNT (AUTO) 9.8 K/uL (4.3-11.0)
--- NOTE | 2020-01-01 19:58 | NUR ---
RN CLOSING NOTES PATIENT IS RESTING IN BED COMFORTABLY AT THIS TIME. NO S.SX OF DISTRESS OR SOB NOTED. PT NEEDS HAVE BEEN MET, VITAL SIGNS ARE STABLE, NO ACUTE CHANGES OCCURRED THROUGHOUT THE SHIFT. SAFETY MEASURES HAVE BEEN IMPLEMENTED, CALL LIGHT IS WITHIN REACH, BED IS IN LOWEST AND LOCKED POSITION, SIDE RAILS UP X2M, [facility]
[2020-01-01] MEDS: LORAZEPAM 0.5 MG TABLET PO PRN (20:59)
[2020-01-01] MEDS: TAMSULOSIN 0.4 MG CAP.SR.24H PO SCH (21:50)
[2020-01-01] MEDS: TEMAZEPAM 7.5 MG CAPSULE PO PRN (22:16)
[2020-01-02] VITALS (7 sets, daily range): BP systolic 112–150; BP diastolic 57–94
--- NOTE | 2020-01-02 06:29 | NUR ---
RN NOTES PATIENT STILL REFUSING TELE MONITORING AND MORNING LABS DESPITE DISCUSSION OF RISKS AND BENEFITS. WILL CONT TO MONITOR CLOSELY.
--- NOTE | 2020-01-02 07:40 | NUR ---
POLICE DETECTIVE OPENING NOTE RECEIVED BEDSIDE REPORT. PT AWAKE IN BED, ALERT AND ORIENTED X 4, ON ROOM AIR, SATURATING WELL, RESPIRATIONS EVEN AND UNLABORED, NO SIGNS OF RESPIRATORY DISTRESS NOTED. REFUSING TO WEAR TELE MONITOR. RIGHT UPPER ARM MIDLINE INTACT, PATENT, SANDOSTATIN INFUSING AT 10CC/HR. BED IN LOW POSITION, LOCKED, CALL LIGHT WITHIN REACH.
[2020-01-02] MEDS: PANTOPRAZOLE 40 MG VIAL IV SCH ×2 (08:21→20:07)
[2020-01-02] MEDS: OXYBUTYNIN CHLORIDE ER 5 MG TAB PO SCH ×2 (08:22→16:12)
[2020-01-02] MEDS: METOPROLOL SUCCINATE 25 MG TAB.SR.24H PO SCH (08:24)
[2020-01-02] MEDS: DULOXETINE HCL 30 MG CAPSULE.DR PO SCH ×2 (08:24→16:12)
[2020-01-02] MEDS: AMIODARONE HCL 200 MG TABLET PO SCH (08:25)
[2020-01-02] MEDS: DIVALPROEX SODIUM 125 MG CAP.SPRINK PO SCH ×3 (08:25→16:12)
[2020-01-02] MEDS: FINASTERIDE (5 MG) 5 MG TABLET PO SCH (08:26)
[2020-01-02] MEDS: PROSOURCE / PROSTAT (PYXIS) 30 ML UDC GT SCH ×4 (08:27→16:13)
[2020-01-02] MEDS: Z GUARD REMEDY 2 OZ OINT TP SCH (09:52)
[2020-01-02] MEDS ORDERED: LORAZEPAM 0.5 MG TABLET PO PRN (12:00)
--- NOTE | 2020-01-02 12:21 | NUR ---
PATIENT REFUSING ROTARY BAR OPERATOR ,EMMANUELLE Pitt MADE AWARE.
[2020-01-02] MEDS: OCTREOTIDE 1,250 MCG in IV NS 0.9% 247.5 ML IV PRN (16:55)
--- NOTE | 2020-01-02 19:16 | NUR ---
ENDORSED TO NOC SHIFT NURSE
[2020-01-02] MEDS: TAMSULOSIN 0.4 MG CAP.SR.24H PO SCH (20:12)
--- NOTE | 2020-01-02 20:20 | NUR ---
AMY/RN PATIENT IS ANXIOUS AND WANTS TO GO SLEEP, ATIVAN 1 MG PO WAS GIVEN ORDERED. WILL MONITOR.
--- NOTE | 2020-01-02 22:45 | NUR ---
AMY/RN PATIENT IS SLEEPING, APPEAR COMFORTABLE, NO SIGNS OF DISTRESS NOTED, CALL LIGHT IN REACH. WILL CONTINUE TO MONITOR.
[2020-01-02 23:34] LABS: BASOPHILS # (AUTO) 0.1 /CMM (0.0-0.2); BASOPHILS % (AUTO) 1.4 % (0.0-2.0); EOSINOPHILS % (AUTO) 1.3 % (0.0-6.0); HEMATOCRIT 27 % (39-51); LYMPHOCYTES # (AUTO) 1.8 /CMM (0.8-4.8); LYMPHOCYTES % (AUTO) 25.6 % (20.0-44.0); MEAN CORPUSCULAR HGB CONC 34 g/dl (31.0-36.0); MEAN CORPUSCULAR VOLUME 92 fL (80-96); MONOCYTES # (AUTO) 0.6 /CMM (0.1-1.30); NEUTROPHILS # (AUTO) 4.6 /CMM (1.8-8.9); NEUTROPHILS % (AUTO) 63.7 % (43.0-81.0); PLATELET COUNT (AUTO) 490 /CMM (150-450); RED BLOOD CELL COUNT(AUTO) 2.87 MIL/uL (4.5-6.0); WHITE BLOOD COUNT (AUTO) 7.2 K/uL (4.3-11.0)
[2020-01-02 23:56] LABS: CALCIUM, SERUM 7.2 mg/dL (8.5-10.1); CREATININE 0.9 mg/dL (0.6-1.3); POTASSIUM 3.8 mmol/L (3.5-5.1)
[2020-01-03 04:00] VITALS: BP 144/72
--- NOTE | 2020-01-03 06:19 | NUR ---
GPS/RN PATIENT IS STILL SLEEPING AT THIS TIME, APPEAR COMFORTABLE, NO SIGNS OF DISTRESS NOTED, ALL NEEDS ATTENDED AT THIS TIME, WILL CONTINUE TO MONITOR.
--- NOTE | 2020-01-03 07:00 | NUR ---
MS RN Opening Note Patient is in bed resting, care endorsed from shift superintendent caustic cresylate. Possible DC today to higher level of care. Patient is Alert and Oriented x3. Midline intact running Sandostatin 50mL. Patient educated on current plan of care and what TIPS procedure means. Asking currently when he will go home and requesting to be discharged. Spoke to MD Del Real about plan of care. Family aware of possible DC to [facility].
[2020-01-03 08:08] LABS: BASOPHILS # (AUTO) 0.1 /CMM (0.0-0.2); BASOPHILS % (AUTO) 1.1 % (0.0-2.0); EOSINOPHILS % (AUTO) 0.8 % (0.0-6.0); HEMATOCRIT 29 % (39-51); HEMOGLOBIN 9.8 g/dL (13.5-17.5); LYMPHOCYTES # (AUTO) 1.1 /CMM (0.8-4.8); LYMPHOCYTES % (AUTO) 21.6 % (20.0-44.0); MEAN CORPUSCULAR HGB CONC 34 g/dl (31.0-36.0); MEAN CORPUSCULAR VOLUME 92 fL (80-96); MONOCYTES # (AUTO) 0.5 /CMM (0.1-1.30); NEUTROPHILS # (AUTO) 3.5 /CMM (1.8-8.9); NEUTROPHILS % (AUTO) 66.5 % (43.0-81.0); PLATELET COUNT (AUTO) 522 /CMM (150-450); RED BLOOD CELL COUNT(AUTO) 3.16 MIL/uL (4.5-6.0); WHITE BLOOD COUNT (AUTO) 5.3 K/uL (4.3-11.0)
[2020-01-03 08:28] LABS: CALCIUM, SERUM 7.6 mg/dL (8.5-10.1); CREATININE 0.8 mg/dL (0.6-1.3); PHOSPHORUS 3.9 mg/dL (2.5-4.9)
[2020-01-03] MEDS: AMIODARONE HCL 200 MG TABLET PO SCH (08:38)
[2020-01-03] MEDS: FINASTERIDE (5 MG) 5 MG TABLET PO SCH (08:38)
[2020-01-03] MEDS: DIVALPROEX SODIUM 125 MG CAP.SPRINK PO SCH ×3 (08:38→16:43)
[2020-01-03] MEDS: DULOXETINE HCL 30 MG CAPSULE.DR PO SCH ×2 (08:38→16:43)
[2020-01-03] MEDS: OXYBUTYNIN CHLORIDE ER 5 MG TAB PO SCH ×2 (08:39→16:47)
[2020-01-03] MEDS: METOPROLOL SUCCINATE 25 MG TAB.SR.24H PO SCH (08:39)
[2020-01-03] MEDS: PROSOURCE / PROSTAT (PYXIS) 30 ML UDC GT SCH ×3 (08:40→16:48)
[2020-01-03] MEDS: Z GUARD REMEDY 2 OZ OINT TP SCH (08:41)
[2020-01-03] MEDS: PANTOPRAZOLE 40 MG VIAL IV SCH (08:41)
[2020-01-03 08:45] VITALS: BP 149/83
[2020-01-03 17:24] VITALS: BP 120/65
--- NOTE | 2020-01-03 19:00 | NUR ---
MS RN Notes- Discharge to [facility] Patient is alert and oriented x3, signed his own paperwork for discharge to [facility]. Patient called family member Marci at bedside to inform of discharge. cocoa room operator given face sheet and paperwork for transfer. Patient is not in acute distress. VSS. Midline intact left in arm to continue care at [facility]. Left via ambulance. Report provided earlier on in shift to case management at [facility].
== END 2020-01-03 20:16 | disposition short-term general hospital (02) | DRG 901 ==
LOC: TELE 22:38 → MED 12-21 08:54 → ICU 12-26 12:45 → TELE1 12-29 10:46 → ICU 12-29 10:54 → TELE1 12-31 13:28 → TELE-TD 12-31 13:30 → TELE1 01-01 10:17 → MEDSG1 01-02 15:31
PROVIDERS: ADMIT Nurse Practitioner Acute Care; ATTEND Nurse Practitioner Acute Care
PROC: 30233N1 Transfusion of Nonautologous Red Blood Cells into Peripheral Vein, Percutaneous Approach (ICD-10-PCS; 2019-12-26)
PROC: 05HC33Z Insertion of Infusion Device into Left Basilic Vein, Percutaneous Approach (ICD-10-PCS; 2019-12-26)
PROC: 0JBM0ZZ Excision of Left Upper Leg Subcutaneous Tissue and Fascia, Open Approach (ICD-10-PCS; principal; 2019-12-27)
PROC: 0JBL0ZZ Excision of Right Upper Leg Subcutaneous Tissue and Fascia, Open Approach (ICD-10-PCS; 2019-12-27)
PROC: 06L38CZ Occlusion of Esophageal Vein with Extraluminal Device, Via Natural or Artificial Opening Endoscopic (ICD-10-PCS; 2019-12-29)
DX: T40.2X1A Poisoning by other opioids, accidental (unintentional), initial encounter (principal); L89.323 Pressure ulcer of left buttock, stage 3; L89.313 Pressure ulcer of right buttock, stage 3; G92 Toxic encephalopathy; N17.0 Acute kidney failure with tubular necrosis; I50.33 Acute on chronic diastolic (congestive) heart failure; K57.31 Diverticulosis of large intestine without perforation or abscess with bleeding; E87.1 Hypo-osmolality and hyponatremia; F33.1 Major depressive disorder, recurrent, moderate; I85.00 Esophageal varices without bleeding; J98.11 Atelectasis; K92.0 Hematemesis; Y92.009 Unspecified place in unspecified non-institutional (private) residence as the place of occurrence of the external cause; I11.0 Hypertensive heart disease with heart failure; E87.6 Hypokalemia; F09 Unspecified mental disorder due to known physiological condition; G89.29 Other chronic pain; I48.91 Unspecified atrial fibrillation; I70.0 Atherosclerosis of aorta; I70.8 Atherosclerosis of other arteries; I71.4 Abdominal aortic aneurysm, without rupture; M19.90 Unspecified osteoarthritis, unspecified site; N40.0 Benign prostatic hyperplasia without lower urinary tract symptoms; K74.60 Unspecified cirrhosis of liver; Z86.73 Personal history of transient ischemic attack (TIA), and cerebral infarction without residual deficits; Z79.899 Other long term (current) drug therapy
CPT/HCPCS: 36410; 36415; 71045-TC; 80048-TC; 80053-TC; 80061-TC; 80076-TC; 80164-TC; 80202-TC; 81000-TC; 82140-TC; 82272-TC; 82570-TC; 82728-TC; 83540-TC; 83735-TC; 83880; 83935-TC; 84100-TC; 84132-TC; 84155-TC; 84300-TC; 84439-TC; 84443-TC; 84484-TC; 85025-TC; 85027-TC; 85610-TC; 85730-TC; 86850-TC; 86921-TC; 93307-TC; 97116-TC; 97530-TC; A6253; C9113; G0378; J1940; J2270; J2354; J2543; J3370; J3475; J3480; J3490; J7030; J7040; J7050; J7060; P9016-BL; Q9967